=== PATIENT | male | born 1965 | race Caucasian/White ===

== ENCOUNTER 2020-02-15 18:53 | Emergency (ER) | payer OTHER, SELFPAY ==
[2020-02-15] VITALS (7 sets, daily range): BP systolic 118–131; BP diastolic 74–94; PULSE 68–112; RESP 17–18; TEMP 37.1; O2SAT 98–100
--- NOTE | ~2020-02-15 | XR_ITS ---
EXAMINATION: XR chest 1V portable DATE: 02/15/2020 19:49 INDICATION: Syncope and weakness TECHNIQUE: frontal view of the chest was obtained. COMPARISON: Chest radiograph dated 07/24/13 FINDINGS: The lungs remain clear with no focal airspace opacities, pulmonary edema, pleural effusion or pneumot horax. The cardiomediastinal silhouette is normal. Mild thoracic dextrocurvature with mild to moderat e spondylosis. Degenerative cystic changes versus chronic erosions with sclerotic margins at the ante roinferior left glenoid. IMPRESSION: 1. No acute cardiopulmonary disease. 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
--- NOTE | 2020-02-15 19:00 | ECG_ITS ---
Measurements Intervals [place] Rate: 81 P: 56 OR: 128 QRS: -3 QRSD: 93 T: 30 QT: 374 QTc: 435 Interpretive Statements SINUS RHYTHM BASELINE ARTIFACT- I, III, AVL, V1-V3 NORMAL ECG Electronically Signed On 02-15-2020 20:21:30 FRICKERTRON CHECKER by Rc Hanks D.O.
--- NOTE | 2020-02-15 19:04 | PC.NURSE ---
BS 399
[2020-02-15 19:07] LABS: Glucose Point of Care 399 (65-105)
[2020-02-15] MEDS: SODIUM CHLORIDE 0.9% IV 1,000 ML 999 ML IV CONT ×2 (19:33→21:39)
[2020-02-15 19:39] LABS: Basophils Percent Auto 0.2 % (0.2-1.2); Eosinophils Percent Auto 0.2 % (0-4.4); Hematocrit 45.6 % (42.0-52.0); Hemoglobin 15.8 g/dL (14.0-18.0); Immature Granulocyte Absolute 0.01 K/mm3 (0.00-0.031); Immature Granulocyte Percent A 0.2 % (0-0.5); Immature Platelet Fraction Pct 6.8 % (0.9-11.2); Lymphocytes Absolute Auto 1.33 K/mm3 (0.9-3.2); Lymphocytes Percent Auto 27.1 % (18.3-44.2); Mean Corpuscular HGB Conc 34.6 g/dl (32-36); Mean Corpuscular Hemoglobin 30.6 pg (26-34); Mean Corpuscular Volume 88.4 fl (80-100); Mean Platelet Volume 11.5 fl (7.4-10.4); Monocytes Absolute Auto 0.6 K/mm3 (0.1-0.6); Monocytes Percent Auto 12.8 % (2.6-8.5); Neutrophils Absolute Auto 2.9 K/mm3 (1.3-6.7); Neutrophils Percent Auto 59.5 % (45.5-73.1); Platelet Count Result 115 k/mm3 (150-375); Red Blood Count 5.16 M/mm3 (4.6-6.20); White Blood Count 4.9 K/mm3 (4.5-10.0)
[2020-02-15 19:50] LABS: Add Urine Microscopic? YES; Appearance Urine Clear (Clear); Bilirubin Urine Negative (Negative); Blood Urine Negative (Negative); Color Urine Straw (Yellow); Glucose Urine UA 3+ mg/dL (Negative); Ketones Urine Negative (Negative); Leukocyte Esterase Ur Negative LEU/UL (Negative); Nitrate Urine Negative (Negative); Protein Urine Negative (Negative); RBC Urine 0-2 /hpf (0-2); Urobilinogen Urine Negative mg/dL (<2.0); WBC Urine 0-3 /hpf
[2020-02-15 19:53] LABS: Specific Grav Ur 1.033 (1.001-1.035)
[2020-02-15 19:53] LABS: Beta-Hydroxybutyrate/Acetoacetate 0.12 mmol/L (0.02-0.27)
[2020-02-15 20:12] LABS: Alanine Aminotransferase 35 U/L (4-50); Albumin Level 3.5 g/dL (3.5-5.1); Alkaline Phosphatase 97 U/L (38-126); Anion Gap 6 mmol/L (8-16); Aspartate Amino Transferase 42 U/L (17-59); Bilirubin,Total 0.3 mg/dL (0.2-1.3); Blood Urea Nitrogen 16 mg/dL (9-20); Carbon Dioxide 31 mmol/L (22-30); Chloride 97 mmol/L (98-107); Estimated CRCL calculation 88 ml/min; Estimated Glomerular Filt Rate > 60; Glucose 385 mg/dL (75-110); Sodium 134 mmol/L (137-145)
[2020-02-15 20:58] LABS: Glucose Point of Care 356 (65-105)
--- NOTE | 2020-02-15 20:58 | ED.GENADULT ---
HPI - General Adult General Chief complaint: Syncope Stated complaint: headache/ cramped up /syncopal episodes Time Seen by Provider: 02/15/20 19:11 History of Present Illness HPI narrative: Patient is a 54-year-old gentleman who presents emerged part with chief complaint of generalized weakness. Patient states over the last several days he has felt weaker and also reports that he has history of diabetes and has not been checking his blood sugars. Patient states that he has been exposed to someone who was sick recently but he has not been running a fever. The patient denies cough states today he felt lightheaded and briefly passed out. Patient denies chest pain states that he has generalized body aches. Related Data Allergies Allergy/AdvReac Type Severity Reaction Status Date / Time trazodone Allergy Intermediate Unknown Verified 02/15/20 19:32 glimepiride Allergy Unknown Unknown Verified 02/15/20 19:32 lisinopril Allergy Unknown unknown Verified 02/15/20 19:32 Penicillins Allergy Unknown THROAT Verified 02/15/20 19:32 SWELLING Review of Systems Review of Systems: Narrative: CONSTITUTIONAL: Denies fever, chills, or sweats. EYES: Denies visual changes, redness, or discharge. ENT: Denies rhinorrhea, congestion, sore throat, or otalgia. CARDIOVASCULAR: Denies chest pain, palpitations, or edema. RESPIRATORY: Denies cough or dyspnea. GASTROINTESTINAL: Denies abdominal pain, nausea, vomiting, or diarrhea. GENITOURINARY: Denies dysuria or hematuria. SKIN: Denies rash or itching. MUSCULOSKELETAL: Denies back pain, joint pain, or myalgia. NEUROLOGIC: Denies headache, numbness, or weakness. PSYCHIATRIC: Denies anxiety or depression. All systems reviewed & are unremarkable except as noted in HPI and below PMFSH Family History Family History Mother Hypertension Family history of chronic obstructive pulmonary disease Family history of hypothyroidism Sibling Patient's sister is in good health Father Patient's father is Acute myocardial infarction Other Family history of cardiovascular disease Family history of malignant neoplasm Social History Social History Smoking status: Never smoker Alcohol intake: current Gender identity (if verbalized by the patient): Male Comments Patient has history of diabetes Exam Narrative: Exam Narrative: GENERAL: Well-appearing, well-nourished, and in no acute distress. HEAD: Normocephalic, atraumatic. EYES: PERRLA and EOMI. ENT: Nares clear, no rhinorrhea or epistaxis. Mucous membranes moist. NECK: Supple. CHEST: Clear to auscultation. No respiratory distress. HEART: Regular rate and rhythm. No murmur heard. Normal peripheral pulses. ABDOMEN: Soft, nontender, nondistended, normal active bowel sounds. EXTREMITIES: Normal range of motion. No edema. SKIN: Warm, dry, no rash. NEURO: No focal deficits. Alert and oriented x3. PSYCH: Normal mood and affect. Course Course Emergency Course: Patient was hydrated in the emergency department his blood sugar came down to 272. Patient will be started back on Metformin he is feeling much better at this time. Vital Signs Vital signs: Vital Signs Temperature 37.1 C 02/15/20 19:01 Pulse Rate 92 02/15/20 19:01 Respiratory Rate 17 02/15/20 19:01 Blood Pressure 131/87 02/15/20 19:01 Pulse Oximetry 100 02/15/20 19:01 Temperature 37.1 C 02/15/20 19:01 Pulse Rate 84 02/15/20 22:59 Respiratory Rate 17 02/15/20 22:59 Blood Pressure 118/82 02/15/20 22:59 Pulse Oximetry 98 02/15/20 22:59 Medical Decision Making Vital Signs Vital Signs: Vital Signs Temperature 37.1 C 02/15/20 19:01 Pulse Rate 92 02/15/20 19:01 Respiratory Rate 17 02/15/20 19:01 Blood Pressure 131/87 02/15/20 19:01 Pulse Oximetry 100 02/15/20 19:01 Temperature 37.1 C 02/15/20 19:01
[2020-02-15 22:40] LABS: Glucose Point of Care 401 (65-105)
[2020-02-15 22:45] LABS: Glucose Point of Care 276 (65-105)
== END 2020-02-15 23:00 | disposition home or self-care (01) ==
PROVIDERS: Emergency Medicine; Emergency Provider Emergency Medicine
DX: E11.65 Type 2 diabetes mellitus with hyperglycemia (principal)
CPT/HCPCS: 36415; 71045; 80048; 80076; 81001; 82010; 82948; 85025; 85055; 93005; 96360; 96361; 99283; J7030

== ENCOUNTER → 2020-04-17 13:42 | Outpatient (CLI) | payer OTHER, SELFPAY ==
--- NOTE | ~2020-04-17 | XR_ITS ---
EXAMINATION: XR chest 2V DATE: 04/17/2020 13:57 INDICATION: Smoker. TECHNIQUE: Frontal and lateral views of the chest were obtained. COMPARISON: Chest single view 02/15/2020, CT abdomen and pelvis 03/14/2017 FINDINGS: The chest demonstrates clear lungs without pneumonia, pleural effusion, or pneumothorax. Th e heart size is normal. There is mild chronic anterior wedging of multiple vertebral bodies. IMPRESSION: 1. No acute cardiopulmonary disease. Reviewed, dictated and finalized at location B. 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
== END ==
PROVIDERS: PCP Emergency Medicine; Visit Provider Emergency Medicine
DX: F17.210 Nicotine dependence, cigarettes, uncomplicated (principal)
CPT/HCPCS: 71046

== ENCOUNTER 2020-09-14 11:34 | Emergency (ER) | payer OTHER, SELFPAY ==
[2020-09-14] VITALS (8 sets, daily range): BP systolic 105–146; BP diastolic 71–91; PULSE 90–117; RESP 14–20; TEMP 36.4–36.8; O2SAT 98–100
--- NOTE | ~2020-09-14 | CT_ITS ---
EXAMINATION: CT chest abdomen pelvis w con DATE: 09/14/2020 13:26 INDICATION: Left-sided chest and abdominal pain after fall TECHNIQUE: Transaxial computed tomographic images of the chest, abdomen, and pelvis were obtained aft er the administration of 100 cc of Omnipaque 350 intravenous contrast. The dose-length product (DLP) was 497.55 mGy-cm. Automated exposure control and iterative reconstruction technique were employed. COMPARISON: None FINDINGS: CHEST CT: The lungs are free of acute opacities. There is no pleural effusion or pneumothorax. No pathologicall y enlarged thoracic lymph nodes are identified. The heart size is normal. There is there is moderate osteoarthritis of the left glenohumeral joint. There is an acute fracture of the left 11th rib edgerman iorly. Moderate thoracic spondylosis is noted. ABDOMEN/PELVIS CT: The liver surface is nodular. Splenomegaly is noted. There is a 1.5 cm area of focal subcapsular low attenuation of the spleen adjacent to the 11th rib fracture. The pancreas, gallbladder, and adrenal g lands are normal. The kidneys are unremarkable. Chronic abdominal lymphadenopathy is again noted, lik una reactive. There is no free intraperitoneal gas or evidence of bowel obstruction. There is calcifi ed atherosclerosis of the aorta and many of the other arteries. There are acute transverse process fr actures on the left at L3 and L4. There is mild lumbar spondylosis. IMPRESSION: 1. Grade 1 splenic injury adjacent to a left 11th rib fracture. 2. Acute transverse process fractures on the left at L3 and L4. 3. Cirrhosis with portal hypertension. These findings were discussed with CAMERON Forrest in the Emergency Department at 1400 hour s on 09/14/2020. Reviewed, dictated and finalized at location A. IMPRESSION: 1. Grade 1 splenic injury adjacent to a left 11th rib fracture. 2. Acute transverse process fractures on the left at L3 and L4. 3. Cirrhosis with portal hypertension. These findings were discussed with CAMERON Forrest in the Emergency D epartment at 1400 hours on 09/14/2020.
--- NOTE | ~2020-09-14 | CT_ITS ---
EXAMINATION: CT brain wo con INDICATION: Head injury COMPARISON: None TECHNIQUE: Standard unenhanced head CT. The dose-length product (DLP) was 605.33 mGy-cm. The mA was a djusted according to patient size. Iterative reconstruction technique was employed. FINDINGS: There is no intracranial hemorrhage, acute infarction, or abnormal mass lesion. The ventric les are normal. There is no abnormal mass effect or midline shift. The jimenez-white matter differentiat ion is normal. The basal cisterns are patent. The orbits are normal. The paranasal sinuses, mastoids and calvarium are normal. IMPRESSION: 1. No acute intracranial abnormality. Reviewed, dictated and finalized at location A.
--- NOTE | ~2020-09-14 | XR_ITS ---
EXAMINATION: XR shoulder RT min 2V INDICATION: Right shoulder pain TECHNIQUE: Three views of the right shoulder are submitted. COMPARISON: None FINDINGS: Normal alignment. No fracture. Glenohumeral and acromioclavicular joint spaces are normal. Soft tissues are unremarkable. IMPRESSION: 1. Mild osteoarthritis without acute osseous abnormality. Reviewed, dictated and finalized at location A.
--- NOTE | ~2020-09-14 | CT_ITS ---
EXAMINATION: CT cervical spine wo con DATE: 09/14/2020 13:24 INDICATION: Head injury TECHNIQUE: Computed tomography (CT) of the cervical spine was performed without intravenous contrast. The dose-length product (DLP) was 401.77 mGy-cm. Automated exposure control and iterative reconstruc tion technique were employed. COMPARISON: None FINDINGS: There is no fracture. There are 2 mm of retrolisthesis of C5 on C6. Mild loss of interverte bral disc space height is present at C4-5 and C5-6. The odontoid is intact. The prevertebral soft tis sues are normal. There is mild multilevel facet and uncovertebral joint osteoarthritis. IMPRESSION: 1. Mild cervical spondylosis without acute findings. Reviewed, dictated and finalized at location A.
--- NOTE | 2020-09-14 12:31 | ED.GENADULT ---
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 He was carrying laundry into his basement when he slipped and hit his head against the banister. No LOC. Not on blood thinners. He has experienced nausea without vomiting. He has a left sided frontal headache, rated 7/10 in severity. He has bruising in the affected area. He reports pain and decreased ROM in right shoulder that he states is 9/10 in severity. Pain is worse with movement of the RUE. He further endorses 10/10 pain in left lower back and left lower ribs/abdomen. He has not taken any medications for his symptoms. He does have an underlying hx of HTN and DM. He is taking 40 units of lantus at night and SSI during the day. He states it is not uncommon for BS to be in 400-500 range. He last checked his BS about one week ago with reading at that time around 300. He reports fairly consistent ETOH intake and uses methamphetamine, with last use yesterday. Related Data Home Medications Medication Instructions Recorded Confirmed ergocalciferol (vitamin D2) 09/14/20 insulin glargine [Lantus Solostar SUBCUT 09/14/20 U-100 Insulin] losartan 09/14/20 sertraline mg 09/14/20 Allergies Allergy/AdvReac Type Severity Reaction Status Date / Time trazodone Allergy Intermediate Unknown Verified 09/14/20 11:43 glimepiride Allergy Unknown Unknown Verified 09/14/20 11:43 lisinopril Allergy Unknown unknown Verified 09/14/20 11:43 Penicillins Allergy Unknown THROAT Verified 09/14/20 11:43 SWELLING Review of Systems Review of Systems: Narrative: CONSTITUTIONAL: Denies fever, chills, or sweats. EYES: Denies visual changes, redness, or discharge. ENT: Denies rhinorrhea, congestion, sore throat, or otalgia. CARDIOVASCULAR: Reports left sided rib pain. Denies palpitations, or edema. RESPIRATORY: Denies cough or dyspnea. GASTROINTESTINAL: Reports LUQ pain. Denies nausea, vomiting, or diarrhea. GENITOURINARY: Denies dysuria or hematuria. SKIN: Denies rash or itching. MUSCULOSKELETAL: Reports neck pain, back pain and right shoulder pain. NEUROLOGIC: Reports headache. Denies numbness, dizziness, or weakness. PSYCHIATRIC: Denies anxiety or depression. [facility] Past Medical History Medical History (Updated 09/14/20 @ 14:36 by Madhu Sutherland, CAMERON, ) Diabetes Hypertension Surgical History Surgical History No pertinent past surgical history Family History Family History Mother Hypertension Family history of chronic obstructive pulmonary disease Family history of hypothyroidism Sibling Patient's sister is in good health Father Patient's father is Acute myocardial infarction Other Family history of cardiovascular disease Family history of malignant neoplasm Social History Social History (Updated 09/14/20 @ 12:39 by CAMERON Forrest, ) Smoking status: Current every day smoker Additional smoking assessment comments: 04/01 ppd Alcohol intake: current Substance use: current Substance use type: amphetamines Living arrangements: with family Gender identity (if verbalized by the patient): Male Spiritual care concerns: No Exam Narrative: Exam Narrative: GENERAL: Well-appearing, well-nourished, and in no acute distress. HEAD: Normocephalic, atraumatic. EYES: PERRLA and EOMI. ENT: Nares clear, no rhinorrhea or epistaxis. Mucous membranes moist. Oropharynx without tonsillar hypertrophy exudate or other lesions. Bilateral TMs pearly jimenez nonbulging NECK: Supple. No adenopathy or masses. No gray
[2020-09-14] MEDS: HYDROcodone/acetaminophen (*CRX) 5-325 MG TABLET 1 TAB PO (12:37)
[2020-09-14 13:26] LABS: Estimated CRCL calculation 79 ml/min; Estimated Glomerular Filt Rate > 60
[2020-09-14 13:32] LABS: Add Urine Microscopic? YES; Appearance Urine Clear (Clear); Bilirubin Urine Negative (Negative); Blood Urine 1+ (Negative); Color Urine Straw (Yellow); Glucose Urine UA 3+ mg/dL (Negative); Ketones Urine Negative (Negative); Leukocyte Esterase Ur Negative LEU/UL (Negative); Nitrate Urine Negative (Negative); Protein Urine Negative (Negative); RBC Urine 0-2 /hpf (0-2); Urobilinogen Urine Negative mg/dL (<2.0); WBC Urine 0-3 /hpf
[2020-09-14 13:36] LABS: Basophils Percent Auto 0.5 % (0.2-1.2); Eosinophils Percent Auto 0.2 % (0-4.4); Hemoglobin 14.4 g/dL (14.0-18.0); Immature Granulocyte Absolute 0.02 K/mm3 (0.00-0.031); Immature Granulocyte Percent A 0.2 % (0-0.5); Lymphocytes Percent Auto 10.3 % (18.3-44.2); Mean Corpuscular HGB Conc 33.5 g/dl (32-36); Mean Corpuscular Hemoglobin 29.5 pg (26-34); Mean Corpuscular Volume 88.1 fl (80-100); Mean Platelet Volume 11.5 fl (7.4-10.4); Monocytes Absolute Auto 0.9 K/mm3 (0.1-0.6); Monocytes Percent Auto 10.4 % (2.6-8.5); Neutrophils Absolute Auto 6.9 K/mm3 (1.3-6.7); Neutrophils Percent Auto 78.4 % (45.5-73.1); Platelet Count Result 147 k/mm3 (150-375); Red Blood Count 4.88 M/mm3 (4.6-6.20); Red Cell Distribution Width 12.4 % (11.5-14.5); White Blood Count 8.8 K/mm3 (4.5-10.0)
[2020-09-14 13:36] LABS: Specific Grav Ur 1.031 (1.001-1.035)
[2020-09-14] MEDS: SODIUM CHLORIDE 0.9% IV 1,000 ML 999 ML IV CONT ×2 (13:39→15:14)
[2020-09-14 13:50] LABS: Ethanol < 10 mg/dL (<10)
[2020-09-14 13:59] LABS: INR 1.1; Prothrombin Time 14.5 Seconds (11.1-14.7)
[2020-09-14 14:00] LABS: Partial Thromboplastin Time 28.5 SECONDS (22.3-36.8)
[2020-09-14 14:06] LABS: Alanine Aminotransferase 39 U/L (4-50); Albumin Level 4.3 g/dL (3.5-5.1); Alkaline Phosphatase 102 U/L (38-126); Anion Gap 8 mmol/L (8-16); Aspartate Amino Transferase 48 U/L (17-59); Bilirubin,Total 1.1 mg/dL (0.2-1.3); Blood Urea Nitrogen 10 mg/dL (9-20); Calcium 9.6 mg/dL (8.4-10.2); Carbon Dioxide 31 mmol/L (22-30); Chloride 97 mmol/L (98-107); Estimated CRCL calculation 88 ml/min; Estimated Glomerular Filt Rate > 60; Glucose 526 mg/dL (75-110); Lipase 83 U/L (23-300); Potassium 4.3 mmol/L (3.4-5.0); Sodium 136 mmol/L (137-145)
[2020-09-14 14:52] LABS: Barbiturate Screen Urine Negative (Negative); Benzodiazepines Screen Urine Negative (Negative)
[2020-09-14 14:54] LABS: Cannabinoid Screen Urine Positive (Negative); Cocaine Screen Urine Negative (Negative); Methadone Screen Urine Negative (Negative); Opiate Screen Urine Positive (Negative); Phencyclidine Screen Urine Negative (Negative)
--- NOTE | 2020-09-14 15:00 | PC.NURSE ---
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
--- NOTE | 2020-09-14 15:05 | PC.NURSE ---
Pt advised multiple times to use urinal at bedside to void due to injuries as noted on CT scan, adamantly refuses and states he will walk to bathroom to void. Encourage to lie on stretcher, but sits in chair next to stretcher with monitor on. Has ankle tracking bracelet on ankle, states he's had for 2 years.
[2020-09-14] MEDS: INSULIN HUMAN REGULAR (*BKC) 100 UNITS/ML 12 UNITS IV PUSH (15:14)
[2020-09-14] MEDS: MORPHINE SULFATE (*CRX) 2 MG/ML INJ IV PUSH (15:37)
== END 2020-09-14 16:15 | disposition short-term general hospital (02) ==
PROVIDERS: Emergency Provider Nurse Practitioner; PCP Emergency Medicine
DX: S22.32XA Fracture of one rib, left side, initial encounter for closed fracture (principal); S36.00XA Unspecified injury of spleen, initial encounter; S32.038A Other fracture of third lumbar vertebra, initial encounter for closed fracture; S32.049A Unspecified fracture of fourth lumbar vertebra, initial encounter for closed fracture; E11.9 Type 2 diabetes mellitus without complications; Z79.4 Long term (current) use of insulin; I10 Essential (primary) hypertension; W10.9XXA Fall (on) (from) unspecified stairs and steps, initial encounter
CPT/HCPCS: 70450; 71260; 72125; 73030; 74177; 80053; 80307; 81001; 83690; 85025; 85610; 85730; 96361; 96374; 96375; 99285; A9270; J1815; J2270; J7030; Q9967

== ENCOUNTER 2020-11-29 21:45 | Observation (INO) | payer OTHER, SELFPAY ==
--- NOTE | ~2020-11-29 | XR_ITS ---
EXAMINATION: XR shoulder RT min 2V DATE: 12/01/2020 08:06 INDICATION: Right shoulder pain post fall TECHNIQUE: AP internally and externally rotated, AP oblique externally rotated and transscapular Y vi ews of the right shoulder were obtained. COMPARISON: None FINDINGS: Normal alignment. No fracture.Mild glenohumeral and acromioclavicular osteoarthritis. Visual is port ions of the lungs are clear. Mild thoracic dextrocurvature with moderate spondylosis. Soft tissues ar e unremarkable. IMPRESSION: Mild right glenohumeral and acromioclavicular osteoarthritis. No acute osseous abnormality. Reviewed, dictated and finalized at location A.
[2020-11-29 21:45] VITALS: BP 117/91; PULSE 106; RESP 25; TEMP 37.7; O2SAT 100
[2020-11-29 21:51] LABS: Glucose Point of Care > 500 mg/dl (65-105)
[2020-11-29] MEDS: SODIUM CHLORIDE 0.9% IV 1,000 ML 999 ML IV CONT ×2 (22:06→23:25)
[2020-11-29 22:42] LABS: Basophils Percent Auto 0.3 % (0.2-1.2); Eosinophils Percent Auto 0.1 % (0-4.4); Hematocrit 45.1 % (42.0-52.0); Hemoglobin 15.4 g/dL (14.0-18.0); Immature Granulocyte Absolute 0.04 K/mm3 (0.00-0.031); Immature Granulocyte Percent A 0.3 % (0-0.5); Lymphocytes Absolute Auto 1.11 K/mm3 (0.9-3.2); Lymphocytes Percent Auto 9.3 % (18.3-44.2); Mean Corpuscular HGB Conc 34.1 g/dl (32-36); Mean Corpuscular Volume 87.9 fl (80-100); Mean Platelet Volume 11.1 fl (7.4-10.4); Monocytes Absolute Auto 1.6 K/mm3 (0.1-0.6); Monocytes Percent Auto 13.1 % (2.6-8.5); Neutrophils Absolute Auto 9.2 K/mm3 (1.3-6.7); Neutrophils Percent Auto 76.9 % (45.5-73.1); Platelet Count Result 131 k/mm3 (150-375); Red Blood Count 5.13 M/mm3 (4.6-6.20); Red Cell Distribution Width 12.2 % (11.5-14.5); White Blood Count 11.9 K/mm3 (4.5-10.0)
[2020-11-29 22:45] LABS: Alanine Aminotransferase 48 U/L (4-50); Alkaline Phosphatase 171 U/L (38-126); Anion Gap 7 mmol/L (8-16); Aspartate Amino Transferase 32 U/L (17-59); Bilirubin,Total 0.9 mg/dL (0.2-1.3); Blood Urea Nitrogen 22 mg/dL (9-20); Calcium 10.3 mg/dL (8.4-10.2); Carbon Dioxide 25 mmol/L (22-30); Chloride 96 mmol/L (98-107); Estimated CRCL calculation 95 ml/min; Estimated Glomerular Filt Rate > 60; Glucose 486 mg/dL (65-110); Magnesium 1.8 mg/dL (1.6-2.3); Phosphorus 3.9 mg/dL (2.5-4.5); Potassium 4.3 mmol/L (3.4-5.0); Sodium 128 mmol/L (137-145)
[2020-11-29 22:50] LABS: Beta-Hydroxybutyrate/Acetoacetate 0.22 mmol/L (0.02-0.27)
[2020-11-29 22:55] LABS: Add Urine Microscopic? YES; Appearance Urine Clear (Clear); Bacteria Urine Trace /hpf; Bilirubin Urine Negative (Negative); Blood Urine 2+ (Negative); Color Urine Straw (Yellow); Glucose Urine UA 3+ mg/dL (Negative); Ketones Urine Negative (Negative); Leukocyte Esterase Ur 2+ LEU/UL (Negative); Mucus Urine Rare /lpf; Nitrate Urine Negative (Negative); Protein Urine 1+ mg/dL (Negative); Specific Grav Ur 1.018 (1.001-1.035); Urobilinogen Urine Negative mg/dL (<2.0); WBC Urine >75 /hpf
--- NOTE | 2020-11-29 23:14 | ED.RECABL ---
HPI - Recheck/Abnormal Lab/Rx General Chief Complaint: Recheck/Abnormal Lab/Rx Stated Complaint: hyperglycemia Time Seen by Provider: 11/29/20 21:54 History of Present Illness HPI narrative: Patient presents with elevated blood sugar. Patient reports he has known diabetes but that is not take any of his medications or check his blood sugar on a regular basis. He came in today because he has been not feeling well for the past week or 2 reports achy all over reports diffuse abdominal pain denies nausea vomiting he denies fevers. Reports frequent urination. Related Data Home Medications Medication Instructions Recorded Confirmed No Home Medications 11/30/20 11/30/20 Allergies Allergy/AdvReac Type Severity Reaction Status Date / Time trazodone Allergy Intermediate Unknown Verified 11/29/20 21:55 glimepiride Allergy Unknown Unknown Verified 11/29/20 21:55 lisinopril Allergy Unknown unknown Verified 11/29/20 21:55 Penicillins Allergy Unknown THROAT Verified 11/29/20 21:55 SWELLING Review of Systems Review of Systems: CONSTITUTIONAL: Denies fever, chills, or sweats. EYES: Denies visual changes, redness, or discharge. ENT: Denies rhinorrhea, congestion, sore throat, or otalgia. CARDIOVASCULAR: Denies chest pain, palpitations, or edema. RESPIRATORY: Denies cough or dyspnea. GASTROINTESTINAL: Denies nausea, vomiting, or diarrhea. GENITOURINARY: Patient reports frequent urination SKIN: Denies rash or itching. MUSCULOSKELETAL: Denies back pain, joint pain, or myalgia. NEUROLOGIC: Denies headache, numbness, dizziness, or weakness. PSYCHIATRIC: Denies anxiety or depression. All systems reviewed & are unremarkable except as noted in HPI and below PMFSH Past Medical History Medical History Diabetes Hypertension Surgical History Surgical History No pertinent past surgical history Family History Family History Mother Hypertension Family history of chronic obstructive pulmonary disease Family history of hypothyroidism Sibling Patient's sister is in good health Father Patient's father is Acute myocardial infarction Other Family history of cardiovascular disease Family history of malignant neoplasm Social History Social History Smoking packs per day: 0.5 Smoking cigarettes per day: 10.0 Years smoked: 35 Smoking pack-years: 17.50 Smoking status: Current every day smoker Tobacco type: cigarettes and e-cigarettes/vaping Second hand tobacco smoke exposure: Yes Additional smoking assessment comments: 04/01 ppd Alcohol intake: current Substance use: current Substance use type: marijuana and methamphetamine Last use: pt states its been a couple of months since I used methamphetamines Gender identity (if verbalized by the patient): Male Spiritual care concerns: No Exam Narrative: GENERAL: Well-appearing, well-nourished, and in no acute distress. HEAD: Normocephalic, atraumatic. EYES: PERRLA and EOMI. ENT: Nares clear, no rhinorrhea or epistaxis. Mucous membranes moist. NECK: Supple. No masses. No JVD CHEST: Clear to auscultation. No respiratory distress. No wheezes rales or rhonchi HEART: Regular rate and rhythm. No murmur heard. Normal peripheral pulses. ABDOMEN: Mild diffuse abdominal pain, soft nondistended, normal active bowel sounds. EXTREMITIES: Diffuse tenderness on the right shoulder with multiple analgesic patches in place SKIN: Warm, dry, no rash. NEURO: No focal deficits. Alert and oriented x3. PSYCH: Normal mood and affect. Course Vital Signs Vital signs: Vital Signs Temperature 37.7 C H 11/29/20 21:45 Pulse Rate 106 H 11/29/20 21:45 Respiratory Rate 25 H 11/29/20 21:45 Blood Pressure 117/91 H 11/29/20 21:45 Pulse Oximetry 10
[2020-11-29] MEDS: MORPHINE SULFATE (*CRX) 4 MG/ML INJ IV PUSH (23:24)
[2020-11-29 23:32] VITALS: BP 132/88; PULSE 103; RESP 18; O2SAT 97
[2020-11-29 23:41] LABS: Glucose Point of Care 387 mg/dl (65-105)
--- NOTE | 2020-11-29 23:51 | PC.NURSE ---
called lab @ [phone] to add on Lip talked to Marlin PENALOZA
[2020-11-30] VITALS (8 sets, daily range): BP systolic 96–130; BP diastolic 63–87; PULSE 63–106; RESP 16–21; TEMP 36.3–37.2; O2SAT 98–100; BMI 22.6
[2020-11-30 00:26] LABS: Lactic Acid Reflex 1.7 mmol/L (0.7-2.1)
[2020-11-30 00:49] LABS: Lipase 83 U/L (23-300)
--- NOTE | 2020-11-30 01:05 | PC.NURSE ---
Pt sleeping on stretcher at this time.
[2020-11-30 01:08] LABS: Glucose Point of Care 381 mg/dl (65-105)
--- NOTE | 2020-11-30 01:48 | PC.NURSE ---
This patient, Richard Durham Jr., was admitted to 3 [facility] Surg Room 327-01. Patient/family oriented to hospital policies and general routines including ID bracelet, bed and alarms, visiting hours, pain management, procedures, bathroom and other care routines, personal items, smoking policy, room service/diet, and visiting hours. Information on how to activate the Rapid Response Team has been discussed. Patient/Family are encouraged to report perceived risks to care and to ask questions if they do not understand what they are told or what they should do.
[2020-11-30 02:10] LABS: Glucose Point of Care 497 mg/dl (65-105)
[2020-11-30] MEDS: SODIUM CHLORIDE 0.9% IV 1,000 ML 125 ML IV CONT ×3 (03:03→20:35)
[2020-11-30] MEDS: INSULIN ASPART (*BKC) 100 UNITS/ML 18 UNITS SUB-Q (03:03)
[2020-11-30 04:07] LABS: Glucose Point of Care 303 mg/dl (65-105)
--- NOTE | 2020-11-30 05:34 | PM.IMHP ---
H&P: HPI History of Present Illness Date/Time: 11/30/20 05:34 Chief Complaint: Uncontrolled sugars Narrative: This is a 55-year-old male with past medical history significant for type 2 diabetes mellitus, hypertension. Patient presented to the emergency room due to his sugars being not well controlled his been having polydipsia polyphagia polyuria he denies any pain or burning with urination no fevers no rigors no chills has noted weight loss as well patient is a poor historian and can not really give much history in the emergency room he was found to have a blood sugar in the 500 and a urinalysis was significant for numerous wbc's. Patient has been admitted to regular medical floor for further management and treatment. A BMP was significant for sodium 128 , chest x-ray was cleared. Review of Systems Review of Systems: Polydipsia polyphagia polyuria weight loss Constitutional: Constitutional: Denies chills, Denies fatigue, Denies fever(s), Reports increased appetite, Denies malaise, Denies weakness and Reports weight loss Eyes: Eyes: Denies change in vision ENT: Denies dysphagia, Denies nasal congestion, Denies nasal discharge, Denies nasal obstruction and Denies odynophagia Cardiovascular: Cardiovascular: Denies irregular heart rhythm, Denies lightheadedness, Denies radiating jaw, neck or arm pain, Denies palpitations, Denies dyspnea on exertion and Denies orthopnea Respiratory: Respiratory: Denies cough Gastrointestinal: Gastrointestinal: Denies dyspepsia, Denies heartburn, Denies diarrhea, Denies nausea and Denies vomiting Genitourinary: Genitourinary: Reports no additional male genitourinary complaints, Denies dysuria and Denies flank pain Musculoskeletal: Musculoskeletal: Denies muscle cramps and Denies muscle weakness Integumentary/Breasts: Skin/Breast: Reports system reviewed and no additional complaints, except as docu Neurologic: Reports system reviewed and no additional complaints, except as documented Psychiatric: Psychiatric: Reports no additional psychiatric complaints Endocrine: Endocrine: Reports polyphagia, Reports polydipsia and Reports polyuria Hematologic/Lymphatic: Hematologic/Lymphatic: Reports no additional hematologic/lymphatic complaints Allergic/Immunologic: Allergic/Immunologic: Reports no additional allergic/immunologic complaints PMFSH Past Medical History Medical History Diabetes Hypertension Surgical History Surgical History No pertinent past surgical history Family History Family History Mother Hypertension Family history of chronic obstructive pulmonary disease Family history of hypothyroidism Sibling Patient's sister is in good health Father Patient's father is Acute myocardial infarction Other Family history of cardiovascular disease Family history of malignant neoplasm Social History Social History Smoking packs per day: 0.5 Smoking cigarettes per day: 10.0 Years smoked: 35 Smoking pack-years: 17.50 Smoking status: Current every day smoker Tobacco type: cigarettes and e-cigarettes/vaping Second hand tobacco smoke exposure: Yes Additional smoking assessment comments: 04/01 ppd Alcohol intake: current Substance use: current Substance use type: marijuana and methamphetamine Last use: pt states its been a couple of months since I used methamphetamines Gender identity (if verbalized by the patient): Male Spiritual care concerns: No Meds Home Medications and Allergies Home Medications Medication Instructions Recorded Confirmed Type No Home Medications 11/30/20 11/30/20 History Allergies Allergy/AdvReac Type Severity Reaction Status Date / Time trazodone Allergy Intermediate Unknown Verified 11/29/20 21:
[2020-11-30 08:10] LABS: Glucose Point of Care 184 mg/dl (65-105)
--- NOTE | 2020-11-30 11:18 | PM.IMPN ---
Progress Note: A&P Assessment and Plan (1) Acute UTI: Code(s): N39.0 - Urinary tract infection, site not specified Status: Acute Assessment and Plan: Patient was started on levofloxacin 11/29 Urine culture pending Symptoms improving (2) Uncontrolled diabetes mellitus: Code(s): E11.65 - Type 2 diabetes mellitus with hyperglycemia Status: Acute Assessment and Plan: 1800 carb consistent diet Accu-Cheks AC and HS Insulin sliding scale Supportive care Check hemoglobin A1c He had stopped his diabetes medications on his own as he reports that made him uncomfortable, he was unable to move which medicines, but he was intolerant to metformin. He was on Lantus in the past. Will initiate and titrate. (3) Hypertension: Code(s): I10 - Essential (primary) hypertension Status: Acute Assessment and Plan: He is not on any medicines Blood pressure has not been elevated in the hospital so far, continue to monitor (4) Hyponatremia: Code(s): E87.1 - Hypo-osmolality and hyponatremia Status: Acute Assessment and Plan: Likely dilutional in the setting of significant hyperglycemia. Monitor. (5) Right shoulder pain: Code(s): M25.511 - Pain in right shoulder Status: Acute Assessment and Plan: Reports shoulder pain since August of this year when he had a fall Significant limitation to range of motion Obtain MRI to assess ligament integrity and consult Orthopedics based on results Pain control Physical and occupational therapy (6) Cirrhosis: Code(s): K74.60 - Unspecified cirrhosis of liver Status: Acute Assessment and Plan: This was noted on prior imaging of his abdomen. No symptoms currently related to that. He does have mild thrombocytopenia that is chronic and may be related to his liver disease. His liver disease seems to be compensated present. (7) Polysubstance abuse: Code(s): F19.10 - Other psychoactive substance abuse, uncomplicated Status: Acute Assessment and Plan: He continues to use methamphetamines and marijuana actively last use was a few days ago. He does it twice a day. Additional Plan Code status: Full code Subjective Date/time seen: 11/30/20 11:18 No major events overnight. Reports continued right shoulder pain. He has a lidocaine patch on the shoulder but continues to have significant pain. Received some morphine overnight which helped some. Hemodynamically stable. Afebrile. Review of Systems Review of Systems: All systems reviewed & are unremarkable except as noted in HPI and below Exam Narrative: Gen: Alert, NAD Abd: Soft, NT, ND Heart: RRR Lungs: CTAB Ext: No lower extremity edema Objective Data Vital Signs Vital Signs: Vital Signs - 24 hr 11/29/20 21:45 11/29/20 23:32 11/30/20 00:32 Temperature 99.9 F H Pulse Rate 106 H 103 H 91 Respiratory Rate 25 H 18 21 H Blood Pressure 117/91 H 132/88 130/84 Pulse Oximetry 100 97 100 11/30/20 01:19 11/30/20 01:35 11/30/20 06:00 Temperature 97.7 F 97.3 F L Pulse Rate 106 H 86 73 Respiratory Rate 20 20 20 Blood Pressure 118/87 116/76 96/63 L Pulse Oximetry 98 100 100 Intake/Output Intake/Output: Intake & Output 11/27/20 11/28/20 11/29/20 11/30/20 23:59 23:59 23:59 23:59 Intake Total 1000 2260 Balance 1000 2260 Meds/Results Medications: Active Medications Generic Name Dose Route Start Last Admin Trade Name Freq PRN Reason Stop Dose Admin Dextrose 12.5 gm 11/30/20 02:15 Dextrose 50% 25 Gm/50 Ml Syringe IV PUSH PRN PRN Hypoglycemia Protocol Glucagon 1 mg 11/30/20 02:15 Glucagon For Inj 1 Mg Vial IM PRN PRN Hypoglycemia Protocol Glucose 15 gm 11/30/20 02:15 Glucose Oral Gel 15 Gm Of Glucse In 37.5 Gm Tube PO PRN PRN Hypoglycemia Protocol Levofloxacin/Dextrose 750 mg in 150 mls @ 100 mls/hr 11/30/20 22:00 Levaquin 750 Mg/D5
[2020-11-30] MEDS: INSULIN ASPART (*BKC) 100 UNITS/ML SUB-Q ×2 (11:22→17:29)
[2020-11-30 11:38] LABS: Glucose Point of Care 348 mg/dl (65-105)
[2020-11-30 11:55] LABS: Anion Gap 5 mmol/L (8-16); Blood Urea Nitrogen 24 mg/dL (9-20); Calcium 8.6 mg/dL (8.4-10.2); Carbon Dioxide 25 mmol/L (22-30); Chloride 100 mmol/L (98-107); Estimated CRCL calculation 112 ml/min; Estimated Glomerular Filt Rate > 60; Glucose 343 mg/dL (65-110); Potassium 4.5 mmol/L (3.4-5.0); Sodium 130 mmol/L (137-145)
[2020-11-30] MEDS: LIDOCAINE 5% PATCH 2 PATCH TRANSDERM (15:49)
[2020-11-30 16:34] LABS: Glucose Point of Care 317 mg/dl (65-105)
[2020-11-30] MEDS: traMADol HCL (*CRX) 50 MG TABLET PO (17:29)
--- NOTE | 2020-11-30 20:32 | PC.NURSE ---
Notified of pt. elevated blood sugar. New orders was given.
[2020-11-30] MEDS: INSULIN ASPART (*BKC) 100 UNITS/ML 16 UNITS SUB-Q (20:35)
[2020-11-30] MEDS: INSULIN GLARGINE (*BKC) 100 UNITS/ML 10 UNITS SUB-Q (20:35)
[2020-11-30 21:52] LABS: Glucose Point of Care 413 mg/dl (65-105)
[2020-11-30 23:00] LABS: Glucose Point of Care 264 mg/dl (65-105)
[2020-12-01] MEDS: traMADol HCL (*CRX) 50 MG TABLET PO ×2 (00:10→07:54)
[2020-12-01 06:00] VITALS: BP 118/74; PULSE 76; RESP 16; TEMP 37.2; O2SAT 100
--- NOTE | 2020-12-01 06:24 | PC.NURSE ---
Pt. was not happy with the current pain medication. He requested that he get more morphine like he did in the ED, says Tramadol doesn't take the pain away, I cant feel it all it does is make me sleep like the IV Tylenol. Told pt. that would have to talk to the MD. Pt. did get angry and say Well maybe I'll just throw myself on the floor! Then you would have to give me some morphine or better yet I'll just leave and go to [place] and get some heroin. Educated pt. on the importance of safety and a bed alarm was put on. Pt. did take the tramadol and has not has had anymore complaints of pain at this time. Bed alarm is still on and pt. is being monitored for elopement.
[2020-12-01 07:26] LABS: Basophils Percent Auto 0.4 % (0.2-1.2); Eosinophils Absolute Auto 0.1 K/mm3 (0-0.3); Eosinophils Percent Auto 1.3 % (0-4.4); Hematocrit 38.7 % (42.0-52.0); Immature Granulocyte Absolute 0.03 K/mm3 (0.00-0.031); Immature Granulocyte Percent A 0.5 % (0-0.5); Lymphocytes Absolute Auto 0.97 K/mm3 (0.9-3.2); Lymphocytes Percent Auto 17.7 % (18.3-44.2); Mean Corpuscular HGB Conc 33.6 g/dl (32-36); Mean Corpuscular Hemoglobin 29.7 pg (26-34); Mean Corpuscular Volume 88.6 fl (80-100); Mean Platelet Volume 10.7 fl (7.4-10.4); Monocytes Absolute Auto 0.6 K/mm3 (0.1-0.6); Monocytes Percent Auto 11.2 % (2.6-8.5); Neutrophils Absolute Auto 3.8 K/mm3 (1.3-6.7); Neutrophils Percent Auto 68.9 % (45.5-73.1); Platelet Count Result 105 k/mm3 (150-375); Red Blood Count 4.37 M/mm3 (4.6-6.20); Red Cell Distribution Width 12.2 % (11.5-14.5); White Blood Count 5.5 K/mm3 (4.5-10.0)
[2020-12-01 07:40] LABS: Anion Gap 3 mmol/L (8-16); Blood Urea Nitrogen 17 mg/dL (9-20); Calcium 7.7 mg/dL (8.4-10.2); Carbon Dioxide 23 mmol/L (22-30); Chloride 104 mmol/L (98-107); Estimated CRCL calculation 132 ml/min; Estimated Glomerular Filt Rate > 60; Glucose 245 mg/dL (65-110); Potassium 3.6 mmol/L (3.4-5.0); Sodium 130 mmol/L (137-145)
[2020-12-01] MEDS: INSULIN ASPART (*BKC) 100 UNITS/ML SUB-Q ×2 (07:54→12:53)
[2020-12-01 08:00] VITALS: PULSE 76; RESP 16; O2SAT 100
[2020-12-01 09:01] LABS: Hemoglobin A1C > 14.0 % (<5.7)
--- NOTE | 2020-12-01 09:31 | PM.IMPN ---
Progress Note: A&P Assessment and Plan (1) Acute UTI: Code(s): N39.0 - Urinary tract infection, site not specified Status: Acute Assessment and Plan: Patient was started on levofloxacin 11/29 Urine culture pending Symptoms improving (2) Uncontrolled diabetes mellitus: Code(s): E11.65 - Type 2 diabetes mellitus with hyperglycemia Status: Acute Assessment and Plan: 1800 carb consistent diet Accu-Cheks AC and HS Insulin sliding scale Supportive care Check hemoglobin A1c He had stopped his diabetes medications on his own as he reports that made him uncomfortable, he was unable to move which medicines, but he was intolerant to metformin. Initiated Lantus 11/29, will increase the dose to 20 units tonight. rn diabetes educator consultation (3) Hypertension: Code(s): I10 - Essential (primary) hypertension Status: Acute Assessment and Plan: He is not on any medicines Blood pressure has not been elevated in the hospital so far, continue to monitor (4) Hyponatremia: Code(s): E87.1 - Hypo-osmolality and hyponatremia Status: Acute Assessment and Plan: Likely dilutional in the setting of significant hyperglycemia. Improved. Monitor. (5) Right shoulder pain: Code(s): M25.511 - Pain in right shoulder Status: Acute Assessment and Plan: Reports shoulder pain since August of this year when he had a fall Significant limitation to range of motion Obtain MRI to assess ligament integrity Orthopedic consultation Pain control Physical and occupational therapy (6) Cirrhosis: Code(s): K74.60 - Unspecified cirrhosis of liver Status: Acute Assessment and Plan: This was noted on prior imaging of his abdomen. No symptoms currently related to that. He does have mild thrombocytopenia that is chronic and may be related to his liver disease. His liver disease seems to be compensated present. (7) Polysubstance abuse: Code(s): F19.10 - Other psychoactive substance abuse, uncomplicated Status: Acute Assessment and Plan: He continues to use methamphetamines and marijuana actively last use was a few days ago. He does it twice a day. Additional Plan Code status: Full code DVT prophylaxis: SCDs Subjective Date/time seen: 12/01/20 09:31 No major issues overnight. Hemodynamically stable. Continues to have right shoulder pain. Glycemic control is still poor. Review of Systems Review of Systems: All systems reviewed & are unremarkable except as noted in HPI and below Constitutional: Constitutional: Denies chills, Denies fatigue, Denies fever(s), Reports increased appetite, Denies malaise, Denies weakness and Reports weight loss Exam Narrative: Gen: Alert, NAD Abd: Soft, NT, ND Heart: RRR Lungs: CTAB Ext: No lower extremity edema Objective Data Vital Signs Vital Signs: Vital Signs - 24 hr 11/30/20 13:41 11/30/20 16:00 11/30/20 22:00 Temperature 98.3 F 98.3 F 99 F Pulse Rate 63 63 81 Respiratory Rate 16 16 18 Blood Pressure 127/65 127/65 119/72 Pulse Oximetry 100 100 98 12/01/20 06:00 Temperature 98.9 F Pulse Rate 76 Respiratory Rate 16 Blood Pressure 118/74 Pulse Oximetry 100 Intake/Output Intake/Output: Intake & Output 11/28/20 11/29/20 11/30/20 12/01/20 23:59 23:59 23:59 23:59 Intake Total 1000 4980 540 Output Total 350 Balance 1000 4630 540 Meds/Results Medications: Active Medications Generic Name Dose Route Start Last Admin Trade Name Freq PRN Reason Stop Dose Admin Dextrose 12.5 gm 11/30/20 02:15 Dextrose 50% 25 Gm/50 Ml Syringe IV PUSH PRN PRN Hypoglycemia Protocol Glucagon 1 mg 11/30/20 02:15 Glucagon For Inj 1 Mg Vial IM PRN PRN Hypoglycemia Protocol Glucose 15 gm 11/30/20 02:15 Glucose Oral Gel 15 Gm Of Glucse In 37.5 Gm Tube PO PRN PRN Hypoglycemia Protocol Levofloxacin/Dextrose 750 mg in 150
[2020-12-01 11:35] LABS: Glucose Point of Care 363 mg/dl (65-105)
[2020-12-01 14:00] VITALS: BP 143/89; PULSE 93; RESP 16; TEMP 35.8; O2SAT 100
--- NOTE | 2020-12-01 14:27 | PM.DS ---
DS: Admitting Diagnosis Admitting Diagnosis Hyperglycemia DS: Discharge Diagnosis Discharge Diagnosis (1) Acute UTI: Code(s): N39.0 - Urinary tract infection, site not specified Status: Acute Assessment and Plan: Patient was started on levofloxacin 11/30, culture showing streptococcus viridans, plan for 7 day course Symptoms improving (2) Uncontrolled diabetes mellitus: Code(s): E11.65 - Type 2 diabetes mellitus with hyperglycemia Status: Acute Assessment and Plan: 1800 carb consistent diet Accu-Cheks AC and HS Insulin sliding scale Supportive care hemoglobin A1c > 14% Initiated Lantus and metformin. Continue titration in outpatient setting. all terrain vehicle technician consultation (3) Hypertension: Code(s): I10 - Essential (primary) hypertension Status: Acute Assessment and Plan: He is not on any medicines Blood pressure has not been elevated in the hospital so far, continue to monitor (4) Hyponatremia: Code(s): E87.1 - Hypo-osmolality and hyponatremia Status: Acute Assessment and Plan: Likely dilutional in the setting of significant hyperglycemia. Improved. Monitor. (5) Right shoulder pain: Code(s): M25.511 - Pain in right shoulder Status: Acute Assessment and Plan: Reports shoulder pain since August of this year when he had a fall Significant limitation to range of motion Xray with no obvious deformity Orthopedic outpatient referral Pain control with lidocaine patch and acetaminophen as needed (6) Cirrhosis: Code(s): K74.60 - Unspecified cirrhosis of liver Status: Acute Assessment and Plan: This was noted on prior imaging of his abdomen. No symptoms currently related to that. He does have mild thrombocytopenia that is chronic and may be related to his liver disease. His liver disease seems to be compensated present. (7) Polysubstance abuse: Code(s): F19.10 - Other psychoactive substance abuse, uncomplicated Status: Acute Assessment and Plan: He continues to use methamphetamines and marijuana and advised to discontinue use. DS: Summary Hospital Course Hospital Course: This is a 55-year-old gentleman with past medical history of poorly controlled type 2 diabetes mellitus and hypertension, who presented to the emergency department on 11/29 for evaluation of polyuria, dysuria, and concern for elevated glucose. His initial blood glucose was 526. His labs showed a sodium 128, potassium 4.3, chloride 96, bicarb 25, BUN 22, creatinine 0.7, hemoglobin A1c more than 14%, hemoglobin 15.4, WBC 11.9, platelets 131. Urinalysis showed pyuria and hematuria. He was initiated on levofloxacin. He was initiated on sliding scale insulin along with Lantus, and metformin. His glycemic control improved. He complained of right shoulder pain. He had a fall in August of 2020 and since that time had quite painful with decreased range of motion. X-ray showed mild right glenohumeral and acromioclavicular osteoarthritis. He was treated with lidocaine patch and acetaminophen. Orthopedic was consulted but he wanted to leave prior to evaluation, and wanted to have outpatient evaluation. Although his glycemic control improved, his glucose was still above target, however he wanted to be discharged from the hospital and work on glycemic control in the outpatient setting. He had been off of his diabetes medications recently, he is quite familiar with home glucose checks and insulin which he was on in the past. He will be discharged on Lantus and metformin with follow-up with his primary provider and referral to Orthopedics for evaluation. Time Spent with Patient Time attestation: Total time spent providing and/or coordinating discharge services: 35 min Exam Narrative: Gen: Alert, NAD Abd: Soft, NT, ND Heart: RRR Lungs: CTAB Ext: Nol lower extremity edema DS: Data Data Completed and Pending Labs on day of discharge: Yamil
[2020-12-01 16:24] LABS: Glucose Point of Care 222 mg/dl (65-105)
[2020-12-03 08:06] LABS: Fractional Inspired Oxygen 21 %; HCO3 VBG 24.6 mEq/l (24.0-30.0); PCO2 VBG 35.2 mmHg (42.0-48.0)
[2020-12-03 08:32] LABS: PO2 VBG 26.6 mmHg (35.0-45.0)
[2020-12-03 08:33] LABS: pH VBG 7.462 (7.300-7.400)
== END 2020-12-01 15:15 | disposition home or self-care (01) ==
LOC: ANHED 11-30 00:35 → ANH3MEDSUR 11-30 00:48
PROVIDERS: Emergency Medicine; Admitting Provider Internal Medicine; Emergency Provider Emergency Medicine; Visit Provider Internal Medicine Nephrology
DX: N39.0 Urinary tract infection, site not specified (principal); E11.65 Type 2 diabetes mellitus with hyperglycemia; I10 Essential (primary) hypertension; E87.1 Hypo-osmolality and hyponatremia; B95.4 Other streptococcus as the cause of diseases classified elsewhere; M25.511 Pain in right shoulder; K74.60 Unspecified cirrhosis of liver; D72.829 Elevated white blood cell count, unspecified; R00.0 Tachycardia, unspecified; F17.210 Nicotine dependence, cigarettes, uncomplicated; F17.290 Nicotine dependence, other tobacco product, uncomplicated; F15.90 Other stimulant use, unspecified, uncomplicated; F12.90 Cannabis use, unspecified, uncomplicated; Z91.81 History of falling
CPT/HCPCS: 36415; 73030; 80048; 80053; 81001; 82010; 82803; 82948; 83036; 83605; 83690; 83735; 84100; 85025; 87086; 87088; 96361; 96365; 96374; 96375; 96376; 99285; A9270; G0378; G0379; J0131; J1815; J1956; J2270; J7030

== ENCOUNTER 2020-12-27 20:48 | Observation (INO) | payer OTHER, SELFPAY ==
--- NOTE | ~2020-12-27 | CT_ITS ---
EXAMINATION: CT brain wo con INDICATION: Head injury COMPARISON: 09/14/2020 TECHNIQUE: Standard unenhanced head CT. The dose-length product (DLP) was 605.33 mGy-cm. The mA was a djusted according to patient size. Iterative reconstruction technique was employed. FINDINGS: There is no intracranial hemorrhage, acute infarction, or abnormal mass lesion. The ventric les are normal. There is no abnormal mass effect or midline shift. The jimenez-white matter differentiat ion is normal. The basal cisterns are patent. The orbits are normal. There are old nasal bone fractur es. Intracranial calcified cerebral atherosclerosis is noted. The paranasal sinuses, mastoids and liz varium are normal. IMPRESSION: 1. No acute intracranial abnormality. Reviewed, dictated and finalized at location A.
--- NOTE | ~2020-12-27 | XR_ITS ---
EXAMINATION: XR shoulder RT min 2V INDICATION: Right shoulder pain TECHNIQUE: Four views of the right shoulder are submitted. COMPARISON: 12/01/2020 FINDINGS: There is mild cranial migration of the humeral head with respect to the glenoid which could reflect chronic rotator cuff tear. There is mild glenohumeral and acromioclavicular joint osteoarthr itis. No fracture is identified. Soft tissues are unremarkable. IMPRESSION: 1. No acute osseous abnormality. Reviewed, dictated and finalized at location A.
--- NOTE | ~2020-12-27 | XR_ITS ---
EXAMINATION: XR chest 1V INDICATION: Vomiting TECHNIQUE: AP view of the chest is obtained. COMPARISON: 04/17/2020 FINDINGS: The lungs are free of acute opacities. There is no pleural effusion or pneumothorax. The ca rdiomediastinal silhouette is normal. There is advanced osteoarthritis of the left glenohumeral joint . IMPRESSION: 1. No acute cardiopulmonary abnormality. Reviewed, dictated and finalized at location A.
[2020-12-27 20:48] VITALS: BP 106/78; PULSE 104; RESP 22; TEMP 36.3; O2SAT 99
--- NOTE | 2020-12-27 21:17 | ECG_ITS ---
Measurements Intervals [place] Rate: 101 P: 76 UT: 141 QRS: 30 QRSD: 91 T: 54 QT: 359 QTc: 466 Interpretive Statements SINUS TACHYCARDIA BORDERLINE ECG Electronically Signed On 12-28-2020 8:33:59 CDT by Rc Hanks D.O.
--- NOTE | 2020-12-27 21:45 | PC.NURSE ---
Pt to CT scan via stretcher.
[2020-12-27] MEDS: PANTOPRAZOLE SODIUM IV 40 MG VIAL 80 MG IV PUSH (22:00)
[2020-12-27] MEDS: SODIUM CHLORIDE 0.9% IV 1,000 ML 999 ML IV CONT ×2 (22:01→22:59)
[2020-12-27] MEDS: ONDANSETRON INJ 4 MG/2 ML VIAL IV PUSH (22:01)
[2020-12-27 22:06] VITALS: BP 94/66; PULSE 101; RESP 23; O2SAT 94
[2020-12-27 22:13] LABS: Basophils Absolute Auto 0.1 K/mm3 (0.0-0.1); Basophils Percent Auto 0.7 % (0.2-1.2); Eosinophils Absolute Auto 0.1 K/mm3 (0-0.3); Eosinophils Percent Auto 1.4 % (0-4.4); Hematocrit 27.7 % (42.0-52.0); Hemoglobin 9.6 g/dL (14.0-18.0); Immature Granulocyte Absolute 0.03 K/mm3 (0.00-0.031); Immature Granulocyte Percent A 0.4 % (0-0.5); Lymphocytes Percent Auto 16.1 % (18.3-44.2); Mean Corpuscular HGB Conc 34.7 g/dl (32-36); Mean Corpuscular Hemoglobin 30.3 pg (26-34); Mean Corpuscular Volume 87.4 fl (80-100); Mean Platelet Volume 10.8 fl (7.4-10.4); Monocytes Absolute Auto 0.8 K/mm3 (0.1-0.6); Monocytes Percent Auto 9.8 % (2.6-8.5); Neutrophils Absolute Auto 5.8 K/mm3 (1.3-6.7); Neutrophils Percent Auto 71.6 % (45.5-73.1); Platelet Count Result 161 k/mm3 (150-375); Red Blood Count 3.17 M/mm3 (4.6-6.20); Red Cell Distribution Width 12.4 % (11.5-14.5); White Blood Count 8.1 K/mm3 (4.5-10.0)
[2020-12-27 22:23] LABS: INR 1.2; Prothrombin Time 14.9 Seconds (11.1-14.7)
[2020-12-27 22:24] LABS: Alanine Aminotransferase 38 U/L (4-50); Alkaline Phosphatase 88 U/L (38-126); Anion Gap 7 mmol/L (8-16); Aspartate Amino Transferase 40 U/L (17-59); Bilirubin,Total 0.4 mg/dL (0.2-1.3); Blood Urea Nitrogen 22 mg/dL (9-20); Carbon Dioxide 27 mmol/L (22-30); Chloride 94 mmol/L (98-107); Estimated Glomerular Filt Rate > 60; Lipase 179 U/L (23-300); Partial Thromboplastin Time 28.3 SECONDS (22.3-36.8); Potassium 4.2 mmol/L (3.4-5.0); Sodium 128 mmol/L (137-145)
[2020-12-27 22:51] LABS: Glucose 673 mg/dL (65-110)
[2020-12-27 23:00] VITALS: BP 95/62; PULSE 99; RESP 21; O2SAT 98
[2020-12-27 23:12] LABS: Troponin I < 0.012 ng/mL (0.000-0.034)
[2020-12-27 23:19] VITALS: BP 96/60; PULSE 102; RESP 17; O2SAT 96
[2020-12-27 23:29] LABS: Alveolar/Arterial O2 Gradient 6.6 mmHg; Base Excess ABG -0.1 mEq/l (+/-2.0); Carboxyhemoglobin 0.3 % THb (0-2.0); Fractional Inspired Oxygen 21 %; HCO3 ABG 24.3 mEq/l (22.0-26.0); Methemoglobin ABG 0.2 %THb (0-1.5); Oxygen Content ABG 12.9 %vol (16.0-22.0); Oxygen Saturation ABG 97.6 % (95.0-100.0); Oxyhemoglobin 95.2 % THb (90.0-100.0); PCO2 ABG 38.1 mmHg (35.0-45.0); PO2 ABG 97.5 mmHg (80.0-100.0); PO2 FiO2 Ratio Arterial Blood 4.64 %; Reduced Hemoglobin 4.3 %THb (0-5.0); Total Hemoglobin 9.5 g/dL (12.0-18.0); pH ABG 7.422 (7.350-7.450)
[2020-12-27 23:31] LABS: Device ROOM AIR; Modified Allen's Test Pass; Site Drawn LEFT RADIAL
[2020-12-27] MEDS: OCTREOTIDE ACETATE 50 MCG/ML VIAL IV PUSH (23:31)
[2020-12-27] MEDS: INSULIN HUMAN REGULAR (*BKC) 100 UNITS/ML 10 UNITS IV PUSH (23:37)
[2020-12-27 23:46] VITALS: BP 109/67; PULSE 88; RESP 18; O2SAT 98
[2020-12-27 23:50] VITALS: BP 113/70; PULSE 71; RESP 16; TEMP 35.7; O2SAT 100
[2020-12-28] VITALS (20 sets, daily range): BP systolic 94–124; BP diastolic 44–75; PULSE 73–93; RESP 16–20; TEMP 35.7–36.9; O2SAT 96–100; BMI 21.5
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
--- NOTE | 2020-12-28 00:34 | PM.IMHP ---
H&P: HPI History of Present Illness Date/Time: 12/28/20 00:34 Chief Complaint: Hematemesis Narrative: This is a 55-year-old male with past medical history significant for alcohol abuse, methamphetamine abuse, type 2 diabetes mellitus, recent fall with trauma to the right shoulder patient has been taking ibuprofen at home due to pain, most of the history I have obtained from the mother who is at bedside in the emergency room patient is sleeping he moves spontaneously and purposefully however did not cooperate with history taking. Patient was at his house today he lives with his mom mom witnessed several episodes of hematemesis, large bright red blood emesis, patient has dry blood in his turcios and nostrils . He was brought to the emergency room via EMS Preliminary workup was significant for blood glucose of 673 a sodium of 128 a hemoglobin of 9.6. A blood gas showed a pH of 7.4 pCO2 of 30 P O2 97. According to his mother his noncompliant with his diabetes medication. Patient does had a recent admission to [facility] earlier in November due to uncontrolled blood sugar and urinary tract infection. Review of Systems Review of Systems: ROS unobtainable: Yes unobtainable due to mental status (Drowsy sleeping) PMFSH Past Medical History Medical History Diabetes Hypertension Surgical History Surgical History No pertinent past surgical history Family History Family History Mother Hypertension Family history of chronic obstructive pulmonary disease Family history of hypothyroidism Sibling Patient's sister is in good health Father Patient's father is Acute myocardial infarction Other Family history of cardiovascular disease Family history of malignant neoplasm Social History Social History Smoking packs per day: 0.5 Smoking cigarettes per day: 10.0 Years smoked: 35 Smoking pack-years: 17.50 Smoking status: Current every day smoker Tobacco type: cigarettes and e-cigarettes/vaping Second hand tobacco smoke exposure: Yes Additional smoking assessment comments: 04/01 ppd Alcohol intake: current Substance use: current Substance use type: marijuana and methamphetamine Last use: pt states its been a couple of months since I used methamphetamines Gender identity (if verbalized by the patient): Male Spiritual care concerns: No Meds Home Medications and Allergies Home Medications Medication Instructions Recorded Confirmed Type insulin glargine [Lantus U-100 25 unit SUBCUT HS 30 Days #7.5 ml 12/01/20 Rx Insulin] levofloxacin 750 mg PO DAILY #6 tablet 12/01/20 Rx lidocaine [Lidoderm] 1 patch TRANSDERMAL DAILY #15 ea 12/01/20 Rx metformin 500 mg PO BID #60 tablet 12/01/20 Rx Allergies Allergy/AdvReac Type Severity Reaction Status Date / Time trazodone Allergy Intermediate Unknown Verified 11/29/20 21:55 glimepiride Allergy Unknown Unknown Verified 11/29/20 21:55 lisinopril Allergy Unknown unknown Verified 11/29/20 21:55 Penicillins Allergy Unknown THROAT Verified 11/29/20 21:55 SWELLING Vital Signs Vital Signs - 24 hr 12/27/20 20:48 12/27/20 22:06 12/27/20 23:00 Temperature 97.4 F L Pulse Rate 104 H 101 H 99 Respiratory Rate 22 H 23 H 21 H Blood Pressure 106/78 94/66 L 95/62 L Pulse Oximetry 99 94 98 12/27/20 23:19 12/27/20 23:46 Temperature Pulse Rate 102 H 88 Respiratory Rate 17 18 Blood Pressure 96/60 L 109/67 Pulse Oximetry 96 98 Exam Narrative: Patient is laying in gurney Const: General: well developed and other (Sleeping, well-appearing.); No in distress Nutritional Appearance: thin Orientation/consciousness: Other orientation findings (Sleeping) HENMT: Head: normal to inspection, normocephalic and atraumati
[2020-12-28 00:59] LABS: Glucose Point of Care 229 mg/dl (65-105)
[2020-12-28] MEDS: MORPHINE SULFATE (*CRX) 4 MG/ML INJ IV PUSH (01:46)
[2020-12-28] MEDS: LORazepam INJ (*CRX) 2 MG/ML VIAL 1 MG IV PUSH (01:46)
--- NOTE | 2020-12-28 02:10 | ADMGEN ---
This patient, Richard Durham Jr., was admitted to IMU Room 206-01 on 12/28/20 at 0210. Patient/family oriented to hospital policies and general routines including ID bracelet, bed and alarms, visiting hours, pain management, procedures, bathroom and other care routines, personal items, smoking policy, room service/diet, and visiting hours. Information on how to activate the Rapid Response Team has been discussed. Patient/Family are encouraged to report perceived risks to care and to ask questions if they do not understand what they are told or what they should do.
[2020-12-28] MEDS: SODIUM CHLORIDE 0.9% IV 1,000 ML 125 ML IV CONT ×2 (02:39→11:11)
[2020-12-28] MEDS: LIDOCAINE 5% PATCH 1 PATCH TRANSDERM (11:11)
--- NOTE | 2020-12-28 12:41 | WPDGICN ---
Assessment and Plan Assessment and plan (1) Acute upper GI bleed: Code(s): K92.2 - Gastrointestinal hemorrhage, unspecified Status: Acute Assessment and Plan: started on iv protonix and octreotide could be ulcer/gastritis/esophagitis- h/o polysubstance abuse and using nsaid's but also could be variceal since he has cirrhosis will start also on iv antibiotics as prophylaxis and do EGD tomorrow ok to have liquid diet and npo after midnight (2) Acute blood loss anemia: Code(s): D62 - Acute posthemorrhagic anemia Status: Acute Assessment and Plan: continue to trend h/h and transfuse if hb<7 (3) Cirrhosis: Code(s): K74.60 - Unspecified cirrhosis of liver Status: Acute Assessment and Plan: h/o alcohol abuse will get abdominal ultrasound (4) Polysubstance abuse: Code(s): F19.10 - Other psychoactive substance abuse, uncomplicated Status: Acute Assessment and Plan: will check also for hepatitis monitor for withdrawal (5) Uncontrolled diabetes mellitus: Code(s): E11.65 - Type 2 diabetes mellitus with hyperglycemia Status: Acute Assessment and Plan: not taking insuling at home by primary team (6) Hyponatremia: Code(s): E87.1 - Hypo-osmolality and hyponatremia Status: Acute (7) Right shoulder pain: Code(s): M25.511 - Pain in right shoulder Status: Acute GI Consult Note Consult date/time: 12/28/20 12:41 Reason for consult: coffee ground emesis, cirrhosis HPI: Richard Castillo Marva William is a 55 year old male with history of alcohol abuse and cirrhosis (had paracentesis few years ago per records), methamphetamine abuse (he says that last time 4 days ago), type 2 diabetes mellitus but non-compliance who is poor historian. He had recent fall for which was taking ibuprofen at home due to pain. Mother mentioned to staff that he had several episodes of hematemesis with coffee ground. Patient is comfortable now and sleeping. Blood work showed high blood glucose of 673, sodium of 128 and hemoglobin of 9.6 (last time 13). Started on iv protonix and octreotide. He says that he is hardly drinking anymore. Last CT scan a/p showed cirrhosis with portal HTN Review of Systems Constitutional: Constitutional: Denies chills Eyes: Eyes: Reports no additional eye complaints ENT: Reports Normal hearing present Cardiovascular: Cardiovascular: Denies chest pain Respiratory: Respiratory: Denies dyspnea Gastrointestinal: Gastrointestinal: Reports nausea, Reports vomiting and Reports hematemesis Genitourinary: Genitourinary: Denies dysuria Musculoskeletal: Musculoskeletal: Reports arthralgias Integumentary/Breasts: Skin/Breast: Denies dry skin Neurologic: Reports system reviewed and no additional complaints, except as documented Psychiatric: Psychiatric: Reports anxiety PMFSH Past Medical History Medical History Diabetes Hypertension Surgical History Surgical History No pertinent past surgical history Family History Family History Mother Family history of cardiovascular disease Family history of hypothyroidism Family history of chronic obstructive pulmonary disease Hypertension Sibling Patient's sister is in good health Stomach cancer Family history of malignant neoplasm Father Family history of cardiovascular disease Acute myocardial infarction Patient's father is Social History Social History Smoking packs per day: 0.5 Smoking cigarettes per day: 10.0 Years smoked: 35 Smoking pack-years: 17.50 Smoking status: Current every day smoker Tobacco type: cigarettes and e-cigarettes/vaping Second hand tobacco smoke exposure: Yes Additional smoking assessment comments: 04/01
--- NOTE | 2020-12-28 14:01 | PM.IMPN ---
Progress Note: A&P Assessment and Plan (1) Acute blood loss anemia: Code(s): D62 - Acute posthemorrhagic anemia Status: Acute Assessment and Plan: Continue on Protonix and octreotide drip Monitor H&H. Transfuse PRBC if indicated. GI consult recommendations appreciated. EGD is planned for tomorrow. He has been started on liquid diet today but will remain NPO overnight for endoscopy in the a.m.. Levofloxacin S started by gastroenterology service empirically for SBP. Hepatitis panel has been ordered. (2) Polysubstance abuse: Code(s): F19.10 - Other psychoactive substance abuse, uncomplicated Status: Acute Assessment and Plan: Follow-up in the outpatient setting Nicotine patch as needed Follow for any signs of withdrawal. She has (3) Uncontrolled diabetes mellitus: Code(s): E11.65 - Type 2 diabetes mellitus with hyperglycemia Status: Acute Assessment and Plan: Patient is noncompliant with management and is not taking insulin at home. Continue Lantus. Hold metformin. Insulin sliding scale as needed Accu-Cheks AC and HS (4) Pseudohyponatremia: Code(s): R79.89 - Other specified abnormal findings of blood chemistry Status: Acute Assessment and Plan: Secondary to elevated blood sugar. Continue to monitor (5) Right shoulder pain: Code(s): M25.511 - Pain in right shoulder Status: Acute Assessment and Plan: Follow-up in outpatient setting Avoid NSAIDs. Tylenol as needed. Subjective Date/time seen: 12/28/20 14:01 He was sleepy but easily arousable. He was not very cooperative during my evaluation. He denied have any further episode of vomiting. He has not moved his bowel since he is admitted to the hospital. He is complaining of some abdominal discomfort. He denied have any nausea. He denied have any chest pain fever and chills. Review of Systems Review of Systems: A comprehensive review of systems has been reviewed with the patient and most of the symptoms are negative except the one's mentioned above in HPI. 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 Extremities no edema Objective Data Vital Signs Vital Signs: Vital Signs - 24 hr 12/27/20 20:48 12/27/20 22:06 12/27/20 23:00 Temperature 36.3 C L Pulse Rate 104 H 101 H 99 Respiratory Rate 22 H 23 H 21 H Blood Pressure 106/78 94/66 L 95/62 L Pulse Oximetry 99 94 98 12/27/20 23:19 12/27/20 23:46 12/28/20 00:52 Temperature Pulse Rate 102 H 88 93 Respiratory Rate 17 18 17 Blood Pressure 96/60 L 109/67 94/69 L Pulse Oximetry 96 98 98 12/28/20 02:12 12/28/20 02:20 12/28/20 02:22 Temperature 36.9 C Pulse Rate 92 85 85 Respiratory Rate 18 20 20 Blood Pressure 99/70 L 99/61 L Pulse Oximetry 98 99 99 12/28/20 04:00 12/28/20 05:52 12/28/20 08:51 Temperature 36.6 C 36.5 C Pulse Rate 87 84 78 Respiratory Rate 16 20 Blood Pressure 107/67 97/44 L Pulse Oximetry 97 99 12/28/20 13:07 Temperature 36.4 C L Pulse Rate 78 Respiratory Rate 18 Blood Pressure 112/74 Pulse Oximetry 100 Intake/Output Intake/Output: Intake & Output 12/25/20 12/26/20 12/27/20 12/28/20 23:59 23:59 23:59 23:59 Intake Total 1999 1500 Output Total 640 Balance 1999 860 Meds/Results Medications: Active Medications Generic Name Dose Route Start Last Admin Trade Name Freq PRN Reason Stop Dose Admin Octreotide Acetate 500 mcg/ 100 mls @ 5 mls/hr 12/27/20 22:40 12/27/20 23:31 Dextrose IV CONT 25 mcg/hr .Q20H ROMIE 5 mls/hr Administration 25 MCG/HR Sodium Chloride 1,000 mls @ 75 mls/hr 12/28/20 00:30 12/28/20 11:32 Normal Saline Iv IV CONT 75 mls/hr .[id number] ROMIE Infusion Pantoprazole Sodium 80 mg/ 500 mls
[2020-12-28] MEDS: levoFLOXacin 250 MG/D5W 50 ML 250 MG/50 ML BAG 50 MG IVPB (15:27)
[2020-12-28 17:26] LABS: Hemoglobin 7.9 g/dL (14.0-18.0)
[2020-12-28] MEDS: SODIUM CHLORIDE 0.9% IV 1,000 ML 75 ML IV CONT (20:29)
[2020-12-28 21:22] LABS: Glucose Point of Care 464 mg/dl (65-105)
[2020-12-28] MEDS: INSULIN ASPART (*BKC) 100 UNITS/ML 8 UNITS SUB-Q (21:53)
[2020-12-28] MEDS: MORPHINE SULFATE (*CRX) 2 MG/ML INJ IV PUSH (21:53)
[2020-12-28] MEDS: INSULIN GLARGINE (*BKC) 100 UNITS/ML 25 UNITS SUB-Q (21:54)
[2020-12-28] MEDS: SODIUM CHLORIDE 0.9% IV 250 ML 30 ML IV CONT (21:54)
[2020-12-28] MEDS: TUBING, BLOOD PLUM PUMP TUBING 1 EACH XX (21:54)
[2020-12-29] VITALS: PULSE 76
[2020-12-29 00:03] LABS: Glucose Point of Care 420 mg/dl (65-105)
[2020-12-29 02:00] VITALS: PULSE 84
[2020-12-29] MEDS: MORPHINE SULFATE (*CRX) 2 MG/ML INJ IV PUSH (02:06)
[2020-12-29 02:15] LABS: Glucose Point of Care 284 mg/dl (65-105)
[2020-12-29] MEDS: HYDROmorphone HCL INJ (*CRX) 1 MG/ML SYR IV PUSH (02:49)
[2020-12-29 04:00] VITALS: BP 107/66; PULSE 75; PULSE 76; RESP 16; TEMP 36.1; O2SAT 96
[2020-12-29 05:50] LABS: Basophils Percent Auto 0.6 % (0.2-1.2); Eosinophils Absolute Auto 0.2 K/mm3 (0-0.3); Eosinophils Percent Auto 2.9 % (0-4.4); Hematocrit 25.5 % (42.0-52.0); Hemoglobin 8.7 g/dL (14.0-18.0); Immature Granulocyte Absolute 0.01 K/mm3 (0.00-0.031); Immature Granulocyte Percent A 0.2 % (0-0.5); Lymphocytes Absolute Auto 1.06 K/mm3 (0.9-3.2); Lymphocytes Percent Auto 20.4 % (18.3-44.2); Mean Corpuscular HGB Conc 34.1 g/dl (32-36); Mean Corpuscular Hemoglobin 29.4 pg (26-34); Mean Corpuscular Volume 86.1 fl (80-100); Mean Platelet Volume 11.3 fl (7.4-10.4); Monocytes Absolute Auto 0.5 K/mm3 (0.1-0.6); Monocytes Percent Auto 10.4 % (2.6-8.5); Neutrophils Absolute Auto 3.4 K/mm3 (1.3-6.7); Neutrophils Percent Auto 65.5 % (45.5-73.1); Platelet Count Result 107 k/mm3 (150-375); Red Blood Count 2.96 M/mm3 (4.6-6.20); Red Cell Distribution Width 13.5 % (11.5-14.5); White Blood Count 5.2 K/mm3 (4.5-10.0)
[2020-12-29 06:00] LABS: Anion Gap 4 mmol/L (8-16); Blood Urea Nitrogen 21 mg/dL (9-20); Calcium 7.6 mg/dL (8.4-10.2); Carbon Dioxide 26 mmol/L (22-30); Chloride 107 mmol/L (98-107); Estimated CRCL calculation 109 ml/min; Estimated Glomerular Filt Rate > 60; Glucose 222 mg/dL (65-110); Potassium 3.7 mmol/L (3.4-5.0); Sodium 137 mmol/L (137-145)
[2020-12-29 06:01] LABS: Hemoglobin A1C 12.3 % (<5.7)
--- NOTE | 2020-12-29 06:30 | PC.NURSE ---
Pt decided to leave against medical advice. This RN walked him to the front doors. Alerted element winding machine tender, power house control room operator, and hospitalist.
[2020-12-29 07:08] LABS: Hepatitis B Surface Antigen Negative (Negative)
[2020-12-29 07:13] LABS: HAV RESULT Negative (Negative); Hepatitis B Core IgM Result Negative (Negative)
[2020-12-29 07:39] LABS: Hepatitis C Virus Antibody Reactive (Negative)
--- NOTE | 2020-12-29 14:30 | PM.EVENT ---
Event Note Event Note Event Note: He signed out himself against medical advise at around 6:15AM. He was explained all the complications and health-related issues if he leaves the hospital against medical advice. He understood the risk instill want to leave the hospital. I did not see him today on 12/29.
[2021-01-01 15:21] LABS: Hepatitis C RNA, Quant PCR <15 IU/mL
--- NOTE | 2021-01-18 07:32 | PM.EVENT ---
Event Note Event Note Event Note: I was called to be informed about the patient leaving against medical advice. This is a late entry note. 12/29/20
== END 2020-12-29 06:26 | disposition left against medical advice (07) ==
LOC: ANHED 21:23 → ANHIMU 12-28 01:10
PROVIDERS: Internal Medicine Critical Care Medicine; Internal Medicine Gastroenterology; Admitting Provider Internal Medicine; Emergency Provider Emergency Medicine; Visit Provider Internal Medicine
DX: D62 Acute posthemorrhagic anemia (principal); K92.2 Gastrointestinal hemorrhage, unspecified; K74.60 Unspecified cirrhosis of liver; F19.10 Other psychoactive substance abuse, uncomplicated; E11.65 Type 2 diabetes mellitus with hyperglycemia; R79.89 Other specified abnormal findings of blood chemistry; E87.1 Hypo-osmolality and hyponatremia; M25.511 Pain in right shoulder; I10 Essential (primary) hypertension; F17.210 Nicotine dependence, cigarettes, uncomplicated; F17.290 Nicotine dependence, other tobacco product, uncomplicated; W19.XXXA Unspecified fall, initial encounter; Z91.14 Patient's other noncompliance with medication regimen; Z79.4 Long term (current) use of insulin; Z79.84 Long term (current) use of oral hypoglycemic drugs
CPT/HCPCS: 36415; 36430; 36600; 70450; 71045; 73030; 80048; 80053; 80074; 82375; 82805; 82948; 83036; 83050; 83690; 84484; 85014; 85018; 85025; 85610; 85730; 86850; 86900; 86901; 86920; 87522; 93005; 96361; 96365; 96366; 96374; 96375; 96376; 99285; A9270; C9113; G0378; G0379; J1170; J1815; J1956; J2060; J2270; J2354; J2405; J7030; J7050; J7060; P9016

== ENCOUNTER 2021-08-08 14:21 | Inpatient (IN) | payer OTHER, SELFPAY ==
[2021-08-08] VITALS (13 sets, daily range): BP systolic 115–144; BP diastolic 63–121; PULSE 101–116; RESP 13–22; TEMP 36.3–36.7; O2SAT 95–100; BMI 21.4
--- NOTE | ~2021-08-08 | CT_ITS ---
EXAMINATION: CT abdomen pelvis w con DATE: 08/08/2021 17:14 INDICATION: Right lower quadrant abdominal pain. Nausea and vomiting. TECHNIQUE: Computed tomography (CT) of the abdomen and pelvis was performed with 100 mL Omnipaque 300 intravenous contrast. Automated exposure control and iterative reconstruction technique were employe d. The dose-length product was 480.05 mGy-cm. COMPARISON: CT abdomen and pelvis 09/14/2020 FINDINGS: The visualized portions of the lung bases demonstrate mild atelectasis. No pleural effusion . The heart size is normal. No pericardial effusion. The liver demonstrates a nodular surface contour , consistent with cirrhosis. The gallbladder is normal. There is mild splenomegaly. The pancreas, adr enal glands, and kidneys are normal. There is a right inguinal hernia containing small bowel. Small b owel is dilated proximal to the hernia, consistent with obstruction. There is diverticulosis of the c olon without evidence of diverticulitis. The appendix is not visualized. Paraesophageal varices are n oted. There is a periumbilical portacaval shunt. There is mild periportal lymphadenopathy, likely deangelo ctive. There are no pathologically enlarged lymph nodes. There is severe lumbar spondylosis and moder ate thoracic spondylosis is mild chronic height loss of multiple vertebral bodies. IMPRESSION: 1. Small bowel obstruction secondary to a right inguinal hernia. 2. Cirrhosis of the liver with portal venous hypertension. Reviewed, dictated and finalized at location A.
[2021-08-08 14:53] LABS: Basophils Percent Auto 0.4 % (0.2-1.2); Eosinophils Percent Auto 0.1 % (0-4.4); Hematocrit 47.1 % (42.0-52.0); Hemoglobin 15.1 g/dL (14.0-18.0); Immature Granulocyte Absolute 0.02 K/mm3 (0.00-0.031); Immature Granulocyte Percent A 0.2 % (0-0.5); Lymphocytes Absolute Auto 0.94 K/mm3 (0.9-3.2); Lymphocytes Percent Auto 9.5 % (18.3-44.2); Mean Corpuscular HGB Conc 32.1 g/dl (32-36); Mean Corpuscular Hemoglobin 25.4 pg (26-34); Mean Corpuscular Volume 79.2 fl (80-100); Mean Platelet Volume 10.2 fl (7.4-10.4); Monocytes Absolute Auto 0.8 K/mm3 (0.1-0.6); Monocytes Percent Auto 7.7 % (2.6-8.5); Neutrophils Absolute Auto 8.1 K/mm3 (1.3-6.7); Neutrophils Percent Auto 82.1 % (45.5-73.1); Platelet Count Result 224 k/mm3 (150-375); Red Blood Count 5.95 M/mm3 (4.6-6.20); Red Cell Distribution Width 15.5 % (11.5-14.5); White Blood Count 9.9 K/mm3 (4.5-10.0)
[2021-08-08 15:02] LABS: Alanine Aminotransferase 40 U/L (6-50); Alkaline Phosphatase 222 U/L (38-126); Anion Gap 11 mmol/L (8-16); Aspartate Amino Transferase 47 U/L (17-59); Bilirubin,Total 1.4 mg/dL (0.2-1.3); Blood Urea Nitrogen 10 mg/dL (9-20); Calcium 10.1 mg/dL (8.4-10.2); Carbon Dioxide 27 mmol/L (22-30); Chloride 96 mmol/L (98-107); Estimated Glomerular Filt Rate > 60; Glucose 418 mg/dL (65-110); Lipase 67 U/L (23-300); Potassium 4.3 mmol/L (3.4-5.0); Sodium 134 mmol/L (137-145)
[2021-08-08 16:06] LABS: Glucose Point of Care 451 mg/dl (65-105)
--- NOTE | 2021-08-08 16:08 | PC.NURSE ---
Pt mother at desk. reports patient feels as if he might have a seizure. VS re-evaluated, FSBS checked and scrap charger called for possible bed placement. Pt laying on bench with family bedside.
--- NOTE | 2021-08-08 16:35 | ED.ABDPAIN ---
HPI - Abdominal Pain General Chief Complaint: Abdominal Pain Stated Complaint: abdominal pain Time Seen by Provider: 08/08/21 16:32 Source: RN notes reviewed History of Present Illness HPI narrative: Patient presents emergency room from home for abdominal pain. Patient states has had pain for the past 2 days pain is located in the bilateral lower abdomen and does not radiate he states he has a history of bilateral hernias that are not able to be repaired secondary to his history of cirrhosis he states that the hernia on the right side has been large and has been unable to reduce it for the past 2 days he states he has been associate with nausea and vomiting. He denies any fevers or chills chest pain shortness of breath diarrhea or any other symptoms of concern Related Data Home Medications Medication Instructions Recorded Confirmed risperidone 2 mg PO HS 12/28/20 12/28/20 Allergies Allergy/AdvReac Type Severity Reaction Status Date / Time Penicillins Allergy Severe Anaphylaxis Verified 08/08/21 17:01 glimepiride Allergy Unknown Unknown Verified 08/08/21 17:01 trazodone AdvReac Intermediate Nausea Verified 08/08/21 17:01 lisinopril AdvReac Unknown Cough Verified 08/08/21 17:01 Review of Systems Review of Systems: Gen.: Denies fevers or chills ENT: Denies congestion Respiratory: Denies shortness of breath or cough CV: Denies chest pain or palpitations GI: See HPI denies burning, urgency, frequency or hematuria Musculoskeletal: Denies back pain or muscle pain Neuro: Denies numbness, tingling, weakness or focal weakness Skin: Denies rash Except as documented, all other systems reviewed and negative [facility] Past Medical History Medical History Cirrhosis Diabetes Hypertension Polysubstance abuse Uncontrolled diabetes mellitus Surgical History Surgical History No pertinent past surgical history Family History Family History Mother Family history of cardiovascular disease Family history of hypothyroidism Family history of chronic obstructive pulmonary disease Hypertension Sibling Patient's sister is in good health Stomach cancer Family history of malignant neoplasm Father Family history of cardiovascular disease Acute myocardial infarction Patient's father is Social History Social History Smoking packs per day: 0.5 Smoking cigarettes per day: 10.0 Years smoked: 35 Smoking pack-years: 17.50 Smoking status: Current every day smoker Tobacco type: cigarettes and e-cigarettes/vaping Second hand tobacco smoke exposure: Yes Additional smoking assessment comments: 04/01 ppd Alcohol intake: unknown Substance use: current Substance use type: marijuana and methamphetamine Last use: 12/27/20 Gender identity (if verbalized by the patient): Male Spiritual care concerns: No Exam Narrative: APPEARANCE: No acute distress, nontoxic, resting in bed HEENT: Normocephalic, atraumatic, OMM RESPIRATORY: No respiratory distress, clear to auscultation bilaterally with no rhonchi wheezing or rales CARDIOVASCULAR: RRR s murmur ABDOMINAL: Soft nondistended tender palpation diffusely throughout the abdomen with increased tenderness in right lower quadrant left lower quadrant no rebound or guarding, right inguinal hernia that is firm and unable to be reduced at this time MUSCULOSKELETAl: Moves all extremities. No clubbing, cyanosis or edema. NEURO: Awake and alert. Following commands, speech normal, no focal deficits SKIN:: Warm, dry. Normal Color PSYCHIATRIC: Normal affect/mood Course Course Emergency Course: Attempted to reduce patient's right inguinal hernia unable to reduce Called discussed with Dr. Joel who came to the emergency department. At this time to evaluate the pat
[2021-08-08] MEDS: ONDANSETRON INJ 4 MG/2 ML VIAL IV PUSH (16:50)
[2021-08-08] MEDS: MORPHINE SULFATE (*CRX) 4 MG/ML INJ IV PUSH (16:50)
[2021-08-08] MEDS: SODIUM CHLORIDE 0.9% IV 1,000 ML 999 ML IV CONT ×2 (16:50→17:22)
--- NOTE | 2021-08-08 17:03 | PC.NURSE ---
Pt to CT scan via stretcher at this time.
[2021-08-08 17:08] LABS: Lactic Acid Reflex 2.5 mmol/L (0.7-2.0)
--- NOTE | 2021-08-08 17:37 | PC.NURSE ---
Dr Rogers at bedside at this time to attempt hernia repair. Given 25 Ketamine and 100 Propofol for sedation. Pt on tele monitor w/ VSS. Dr Joel attempting to reduce hernia at this time.
--- NOTE | 2021-08-08 17:40 | PC.NURSE ---
Per Dr Moser at bedside, gave a total of 150 Propofol and 25 Ketamine IVP for sedation and reduction. Dr Joel states successful at reducing hernia. Pt assisted w/ bag mask ventilations.
--- NOTE | 2021-08-08 17:50 | WPDANESEPPF ---
Anes - Initial Pre Proc Eval Procedure: Reduction of Right inguinal hernia Date/Time: 08/08/21 17:50 Surgeon: Wisam Pre Op Diagnosis: Incarcerated Right inguinal hernia with SBO Pre Op Diagnosis: abdominal pain Patient Data Age: 55 Gender: M Height: Weight: Last Vital Signs Temp 36.3 C L 08/08/21 16:07 Pulse 109 H 08/08/21 17:24 Resp 21 H 08/08/21 17:24 BP 132/93 H 08/08/21 17:24 Pulse Ox 98 08/08/21 17:24 Allergies Allergy/AdvReac Type Severity Reaction Status Date / Time Penicillins Allergy Severe Anaphylaxis Verified 08/08/21 17:01 glimepiride Allergy Unknown Unknown Verified 08/08/21 17:01 trazodone AdvReac Intermediate Nausea Verified 08/08/21 17:01 lisinopril AdvReac Unknown Cough Verified 08/08/21 17:01 Home Medications Medication Instructions Recorded Confirmed Type insulin glargine [Lantus U-100 25 unit SUBCUT HS 30 Days #7.5 ml 12/01/20 12/28/20 Rx Insulin] lidocaine [Lidoderm] 1 patch TRANSDERMAL DAILY #15 ea 12/01/20 12/28/20 Rx metformin 500 mg PO BID #60 tablet 12/01/20 12/28/20 Rx risperidone 2 mg PO HS 12/28/20 12/28/20 History Laboratory Tests 08/08/21 08/08/21 08/08/21 14:44 14:44 16:03 WBC 9.9 K/mm3 K/mm3 (4.5-10.0) RBC 5.95 M/mm3 M/mm3 (4.6-6.20) Hgb 15.1 g/dL D g/dL (14.0-18.0) Hct 47.1 % % (42.0-52.0) MCV 79.2 fl L fl (80-100) MCH 25.4 pg L pg (26-34) MCHC 32.1 g/dl g/dl (32-36) RDW 15.5 % H % (11.5-14.5) Plt Count 224 k/mm3 D k/mm3 (150-375) MPV 10.2 fl fl (7.4-10.4) Immature Gran % (Auto) 0.2 % % (0-0.5) Neut % (Auto) 82.1 % H % (45.5-73.1) Lymph % (Auto) 9.5 % L % (18.3-44.2) [place] % (Auto) 7.7 % % (2.6-8.5) Eos % (Auto) 0.1 % % (0-4.4) Baso % (Auto) 0.4 % % (0.2-1.2) Lymph # (Auto) 0.94 K/mm3 K/mm3 (0.9-3.2) [place] # (Auto) 0.8 K/mm3 H K/mm3 (0.1-0.6) Eos # (Auto) 0.0 K/mm3 K/mm3 (0-0.3) Baso # (Auto) 0.0 K/mm3 K/mm3 (0.0-0.1) Abs Immat Gran (auto) 0.02 K/mm3 K/mm3 (0.00-0.031) Absolute Neuts (auto) 8.1 K/mm3 H K/mm3 (1.3-6.7) Absolute Nucleated RBC 0.0 K/mm3 K/mm3 (0.0-0.012) Nucleated RBC % 0.0 % % (0.0-0.2) Sodium 134 mmol/L L mmol/L (137-145) Potassium 4.3 mmol/L mmol/L (3.4-5.0) Chloride 96 mmol/L L mmol/L (98-107) Carbon Dioxide 27 mmol/L mmol/L (22-30) Anion Gap 11 mmol/L mmol/L (8-16) BUN 10 mg/dL D mg/dL (9-20) Creatinine 0.60 mg/dL L mg/dL (0.7-1.3) Estim Creat Clear Calc Not Reportable Estimated GFR > 60 (59 - ) Glucose 418 mg/dL H mg/dL (65-110) POC Capillary Glucose 451 mg/dl H mg/dl (65-105) Lactic Acid Calcium 10.1 mg/dL mg/dL (8.4-10.2) Total Bilirubin 1.4 mg/dL H mg/dL (0.2-1.3) AST 47 U/L U/L (17-59) ALT 40 U/L U/L (6-50) Alkaline Phosphatase 222 U/L H U/L (38-126) Total Protein 9.0 g/dL H g/dL (6.3-8.2) Albumin 5.0 g/dL g/dL (3.5-5.1) Lipase 67 U/L U/L (23-300) 08/08/21 16:47 WBC RBC Hgb Hct MCV MCH MCHC RDW Plt Count MPV Immature Gran % (Auto) Neut % (Auto) Lymph % (Auto) [place] % (Auto) Eos % (Auto) Baso % (Auto) Lymph # (Auto) [place] # (Auto) Eos # (Auto) Baso # (Auto) Abs Immat Gran (auto) Absolute Neuts (auto) Absolute Nucleated RBC Nucleated RBC % Sodium Potassium Chloride Carbon Dioxide Anion Gap BUN Creatinine Estim Creat Clear Calc Estimated GFR Glucose POC Capillary Glucose Lactic Acid
--- NOTE | 2021-08-08 17:57 | PM.CNGS ---
Assessment and Plan Assessment and plan (1) Incarcerated right inguinal hernia: Code(s): K40.30 - Unilateral inguinal hernia, with obstruction, without gangrene, not specified as recurrent Status: Acute Assessment and Plan: Patient a very poor candidate for emergency surgery. Department of Anesthesia administered significant sedation and I was able to reduce the hernia in the emergency room completely. Patient will be admitted and I will follow along with you. He should have his hernia repaired in the near future to avoid recurrence of this. Possibly during this admission if blood sugar can be controlled and he can be otherwise optimized. This could be done under sedation with local anesthetic. (2) Small bowel obstruction: Code(s): K56.609 - Unspecified intestinal obstruction, unspecified as to partial versus complete obstruction Status: Acute Assessment and Plan: Due to incarcerated right inguinal hernia-resolved after hernia reduced. (3) Acute hyperglycemia: Code(s): R73.9 - Hyperglycemia, unspecified Status: Acute Assessment and Plan: Blood sugars in the 400s. (4) Uncontrolled diabetes mellitus: Code(s): E11.65 - Type 2 diabetes mellitus with hyperglycemia Status: Acute Assessment and Plan: Non compliant. (5) Cirrhosis: Code(s): K74.60 - Unspecified cirrhosis of liver Status: Chronic Assessment and Plan: Related to alcohol. (6) Portal hypertension with esophageal varices: Code(s): K76.6 - Portal hypertension; I85.00 - Esophageal varices without bleeding Status: Chronic Assessment and Plan: Esophageal another varices. (7) Polysubstance abuse: Code(s): F19.10 - Other psychoactive substance abuse, uncomplicated Status: Chronic Assessment and Plan: History methamphetamine use. History of Present Illness Consult details Consult date: 08/08/21 Reason for consult: hernia (Incarcerated right inguinal hernia) Requesting physician: Richard Brown DO Narrative: Patient is a 55-year-old man with alcoholic cirrhosis and portal hypertension. He is also an insulin-dependent diabetic. His a history of methamphetamine use as well. He was admitted to the hospital last November and December with out of control insulin-dependent diabetes and hyperglycemia. He came to the emergency room today with a 2 day history of right inguinal pain and was found to have an incarcerated right inguinal hernia. His blood sugars were in the 400s. He had had nausea and vomiting. CT scan showed evidence of an incarcerated right inguinal hernia with small-bowel obstruction due to the incarceration. I was called by the emergency room physician and saw the patient in consultation. Review of Systems Review of Systems: All systems reviewed & are unremarkable except as noted in HPI and below Constitutional: Constitutional: Denies chills and Denies fever(s) Cardiovascular: Cardiovascular: Denies chest pain, Denies diaphoresis, Denies dyspnea and Denies paroxysmal nocturnal dyspnea Respiratory: Respiratory: Denies chest congestion, Denies cough and Denies dyspnea Gastrointestinal: Gastrointestinal: Reports as per HPI, Reports abdominal pain, Reports GI cramping and Reports vomiting Integumentary/Breasts: Skin/Breast: Denies lesions and Denies rash PMFSH Past Medical History Medical History Cirrhosis Diabetes Hypertension Polysubstance abuse Uncontrolled diabetes mellitus Surgical History Surgical History No pertinent past surgical history Family History Family History Mother Family history of cardiovascular disease Family history of hypothyroidism Family history of chronic obstructive pulmonary disease Hypertension Sibling Patient's sister is in good
[2021-08-08 18:35] LABS: INR 1.3; Prothrombin Time 15.5 Seconds (11.1-14.7)
[2021-08-08 18:36] LABS: Partial Thromboplastin Time 29.8 SECONDS (22.3-36.8)
[2021-08-08 19:03] LABS: Glucose Point of Care 343 mg/dl (65-105)
[2021-08-08 19:09] LABS: Appearance Urine Clear (Clear); Bilirubin Urine Negative (Negative); Color Urine Yellow (Yellow); Glucose Urine UA 3+ mg/dL (Negative); Ketones Urine 2+ mg/dL (Negative); Leukocyte Esterase Ur Negative LEU/UL (Negative); Nitrate Urine Negative (Negative); Protein Urine Trace mg/dL (Negative); Specific Grav Ur 1.015 (1.001-1.035); Urobilinogen Urine 0.2 mg/dL (<2.0)
[2021-08-08 19:17] LABS: Add Urine Microscopic? YES; Blood Urine Trace-Intact (Negative)
[2021-08-08 19:22] LABS: RBC Urine 0-2 /hpf (0-2); WBC Urine 0-3 /hpf
[2021-08-08 19:54] LABS: Reflex Lactic Acid Yes or No Add Lactic
--- NOTE | 2021-08-08 21:22 | ADMGEN ---
This patient, Richard Durham Jr., was admitted to Medical Room 343-01. Patient/family oriented to hospital policies and general routines including ID bracelet, bed and alarms, visiting hours, pain management, procedures, bathroom and other care routines, personal items, smoking policy, room service/diet, and visiting hours. Information on how to activate the Rapid Response Team has been discussed. Patient/Family are encouraged to report perceived risks to care and to ask questions if they do not understand what they are told or what they should do.
[2021-08-08 22:30] LABS: Glucose Point of Care 306 mg/dl (65-105)
--- NOTE | 2021-08-08 22:46 | PC.NURSE ---
BS 306 BASIC DIABETIC TEACHING REGARDING PARAMETERS AND INSULIN PROTOCOLS WAS GIVEN. PATIENT STATES THAT ANY ATTEMPTS TO ADMINISTER ANY MEDS VIA INJECTION WOULD BE REFUSED. THIS REFUSAL INCLUDE BLOOD DRAWS, WHICH HE HAS IN FACT HAS REFUSED THIS EVENING. HOSPITALIST JAMES HAS BEEN NOTIFIED.
--- NOTE | 2021-08-08 22:54 | PM.IMHP ---
H&P: HPI History of Present Illness Date/Time: Greater than 30 minutes spent reviewing chart, evaluating, treating, and counseling patient. Anticipate greater than 48 hours admission, will admit as inpatient. 08/08/21 22:54 55 yo M PMHx of polysubstance abuse (recently smoked meth yesterday), DM suppose to be on insulin (noncompliant), cirrhosis, h/o Hep C (treated), HTN. Known h/o b/l inguinal hernias. Presents with 1 day h/o RLQ abdominal pain with associated n/v. Patient reports he noticed his R hernia was protruding out and tried to reduce it, but unable to. Patient denies hematemesis. Report normal BM. Denies blood in stool or melena. Patient states he has chronic pain, but patient's currently medications do not help so he uses meth to help with the pain. States he last smoked meth yesterday, does not use IV meth anymore. Patient denies fevers/chills, SOB, CP, palpitations, d/c, dysuria, hematuria. In ED, patient's vitals stable. Labs remarkable HB 15 with low MCV, normal INR, glucose 451. CT A/P shows SBO 2/2 R inguinal hernia and cirrhosis of the liver with portal HTN. GS consulted and evaluated patient in ED. Patient is too high risk to take to OR, so patient was sedated at bedside and hernia was reduced. Chief Complaint: Abdominal pain, n/v Review of Systems Review of Systems: 10 point ROS reviewed, negative unless otherwise specified per HPI [facility] Past Medical History Medical History (Updated 08/08/21 @ 23:32 by Corona Cotton DO) Cirrhosis Depression Diabetes Hypertension Microcytic anemia Polysubstance abuse Uncontrolled diabetes mellitus Surgical History Surgical History No pertinent past surgical history Family History Family History Mother Family history of cardiovascular disease Family history of hypothyroidism Family history of chronic obstructive pulmonary disease Hypertension Sibling Patient's sister is in good health Stomach cancer Family history of malignant neoplasm Father Family history of cardiovascular disease Acute myocardial infarction Patient's father is Social History Social History Smoking packs per day: 0.5 Smoking cigarettes per day: 10.0 Years smoked: 35 Smoking pack-years: 17.50 Smoking status: Current every day smoker Tobacco type: cigarettes and e-cigarettes/vaping Second hand tobacco smoke exposure: Yes Additional smoking assessment comments: 04/01 ppd Alcohol intake: former Drinks per week: 2 Substance use: current Substance use type: methamphetamine Last use: 12/27/20 Gender identity (if verbalized by the patient): Male Spiritual care concerns: No Meds Home Medications and Allergies Home Medications Medication Instructions Recorded Confirmed Type aripiprazole 5 mg PO DAILY 08/08/21 08/08/21 History carvedilol 3.125 mg PO BID 08/08/21 08/08/21 History escitalopram oxalate 10 mg PO DAILY 08/08/21 08/08/21 History gabapentin 300 mg PO TID 08/08/21 08/08/21 History ropinirole 0.5 mg PO TID 08/08/21 08/08/21 History Allergies Allergy/AdvReac Type Severity Reaction Status Date / Time Penicillins Allergy Severe Anaphylaxis Verified 08/08/21 21:17 glimepiride Allergy Unknown Unknown Verified 08/08/21 21:17 trazodone AdvReac Intermediate Nausea Verified 08/08/21 21:17 lisinopril AdvReac Unknown Cough Verified 08/08/21 21:17 Vital Signs Vital Signs - 24 hr 08/08/21 14:28 08/08/21 16:07 08/08/21 17:24 Temperature 97.6 F 97.3 F L Pulse Rate 112 H 116 H 109 H Pulse Rate [Monitor] Respiratory Rate 16 22 H 21 H Blood Pressure 144/121 H 129/98 H 132/93 H Blood Pressure [Left Arm] Pulse Oximetry 100 100 98 08/08/21 17:35 08/08/21 17:37 08/08/21 17:42 Temperature 98.0 F 98.0 F 98.0 F Pulse Rate Pulse Rate [Monitor] 107 H 106 H 105 H Res
[2021-08-08] MEDS: SODIUM CHLORIDE 0.9% IV 1,000 ML 100 ML IV CONT (23:45)
[2021-08-08] MEDS: NICOTINE (*PBKC) 21 MG PATCH 1 PATCH TRANSDERM (23:45)
[2021-08-09 05:25] VITALS: BP 106/66; PULSE 89; RESP 16; TEMP 36.1; O2SAT 99
--- NOTE | 2021-08-09 06:44 | PC.NURSE ---
AUTO DISMANTLER HERE TO DRAW MORNING LABS. PATIENT REFUSING AT THIS TIME STATING TO TRY BACK LATER HE WANTS TO EAT. PATIENT AWARE THAT HIS DIET ORDER IS NPO. PHYSICIAN MADE AWARE.
[2021-08-09 08:00] VITALS: O2SAT 99
[2021-08-09 08:12] LABS: Glucose Point of Care 267 mg/dl (65-105)
--- NOTE | 2021-08-09 09:48 | PC.NURSE ---
Patient has repeatedly refused any and all interventions including FSBS, medications, and labs. Additionally, he has announced that he would be leaving sometime today no matter what. Nursing convinced him to stay pending a visit from .
--- NOTE | 2021-08-09 11:22 | PM.PNGS ---
Progress Note: A&P Assessment and Plan (1) Incarcerated right inguinal hernia: Code(s): K40.30 - Unilateral inguinal hernia, with obstruction, without gangrene, not specified as recurrent Status: Acute Assessment and Plan: Hernia was reduced yesterday and has stayed reduced through the night. He has no signs of bowel obstruction. I spoke with Dr. Moseley and patient adamantly plans to leave today either with discharge or against medical advice. Both Dr. Moseley and I have strongly advocated that he stay and have his hernia repaired. He does not agree to do this. I can see him in the office but his diabetes will be uncontrolled and I am not sure that we can go ahead with surgery on an elective basis although we will try. (2) Small bowel obstruction: Code(s): K56.609 - Unspecified intestinal obstruction, unspecified as to partial versus complete obstruction Status: Acute Assessment and Plan: Resolved with hernia reduction yesterday. (3) Portal hypertension with esophageal varices: Code(s): K76.6 - Portal hypertension; I85.00 - Esophageal varices without bleeding Status: Chronic Assessment and Plan: Increases surgical risks (4) Acute hyperglycemia: Code(s): R73.9 - Hyperglycemia, unspecified Status: Acute Assessment and Plan: Improving but patient noncompliant with diabetes and expect this to return promptly (5) Polysubstance abuse: Code(s): F19.10 - Other psychoactive substance abuse, uncomplicated Status: Chronic Assessment and Plan: Increases risks (6) Cirrhosis: Qualifiers: Hepatic cirrhosis type: alcoholic cirrhosis Ascites presence: without ascites Qualified Code(s): K70.30 - Alcoholic cirrhosis of liver without ascites Code(s): K74.60 - Unspecified cirrhosis of liver Status: Chronic Assessment and Plan: Increases surgical risk. (7) Uncontrolled diabetes mellitus: Qualifiers: Diabetes mellitus type: other specified (including [place]) Glycemic state: with hyperglycemia Qualified Code(s): E13.65 - Other specified diabetes mellitus with hyperglycemia Code(s): E11.65 - Type 2 diabetes mellitus with hyperglycemia Status: Acute Assessment and Plan: As above. Subjective Subjective Date/Time Seen: 08/09/21 11:22 Patient reports: other (Tired) Review of Systems Review of Systems: ROS unobtainable: Yes other (Sleepy and uncooperative to complete review of systems) Exam GI: Inspection: non-distended GI Palp: Yes Soft to palpation, No Tenderness to palpation present (GI) and No Palpable mass present Auscultation: normal bowel sounds : Male General Exam: Yes hernia (Right inguinal remains reducible) Objective Data Vital Signs Vital Signs: Vital Signs - 24 hr 08/08/21 14:28 08/08/21 16:07 08/08/21 17:24 Temperature 36.4 C 36.3 C L Pulse Rate 112 H 116 H 109 H Pulse Rate [Monitor] Respiratory Rate 16 22 H 21 H Blood Pressure 144/121 H 129/98 H 132/93 H Blood Pressure [Left Arm] Pulse Oximetry 100 100 98 08/08/21 17:35 08/08/21 17:37 08/08/21 17:42 Temperature 36.7 C 36.7 C 36.7 C Pulse Rate Pulse Rate [Monitor] 107 H 106 H 105 H Respiratory Rate 20 13 21 H Blood Pressure Blood Pressure [Left Arm] 127/79 119/77 127/79 Pulse Oximetry 96 99 96 08/08/21 17:57 08/08/21 18:01 08/08/21 18:28 Temperature 36.7 C 36.6 C Pulse Rate 101 H Pulse Rate [Monitor] 107 H 113 H Respiratory Rate 18 14 18 Blood Pressure 129/83 Blood Pressure [Left Arm] 139/79 134/85 Pulse Oximetry 100 95 97 08/08/21 18:58 08/08/21 19:30 08/08/21 22:18 Temperature 36.6 C Pulse Rate 110 H 106 H 104 H Pulse Rate [Monitor] Respiratory Rate 20 20 16 Blood Pressure 136/89 137/78 115/63 Blood Pressure [Left Arm] Pulse Oximetry 100 100 98 08/08/21 23:48 08/09/21 05:25 Temperature 36.1 C L Pulse Rate 109 H 89 Pulse Rate [Monitor] Res
[2021-08-09] MEDS: INSULIN ASPART (*BKC) 100 UNITS/ML SUB-Q (11:25)
[2021-08-09 11:29] LABS: Glucose Point of Care 324 mg/dl (65-105)
--- NOTE | 2021-08-09 11:29 | PM.DS ---
DS: Admitting Diagnosis Discharge Date patient was seen and examined 08/09/2021 Admitting Diagnosis incarcerated right inguinal hernia DS: Discharge Diagnosis Discharge Diagnosis (1) Incarcerated right inguinal hernia: Code(s): K40.30 - Unilateral inguinal hernia, with obstruction, without gangrene, not specified as recurrent Status: Acute Assessment and Plan: GS following, patient to be evaluated for possible surgery is medically stable. Given 1 L IVF bolus, on VF NS 100 cc/hr Patient was pain free and refused to stay for hernia repair on Wednesday he wished to follow up as an outpatient instead discussed with Dr. Joel who recommended that the patient remain hospitalized however because the patient was adamant regarding going home he agreed to see the patient in the office if he would call on Wednesday for an appointment patient was instructed to return to the emergency room immediately if his pain recurred the patient indicated that he understood the risk of going home including and more extensive emergency surgery should his problem recur and he understood the necessity of follow-up (2) Polysubstance abuse: Code(s): F19.10 - Other psychoactive substance abuse, uncomplicated Status: Chronic Assessment and Plan: Patient reports he uses meth because of pain and has no other options due to drug use. Counseled on importance of cessation to be able to get proper care from pain management (3) Cirrhosis: Qualifiers: Ascites presence: without ascites Hepatic cirrhosis type: alcoholic cirrhosis Qualified Code(s): K70.30 - Alcoholic cirrhosis of liver without ascites Code(s): K74.60 - Unspecified cirrhosis of liver Status: Chronic Assessment and Plan: Does not appear acutely decompensated. Does not appear to have large volume ascites. Continue to monitor PT-INR (4) Uncontrolled diabetes mellitus: Qualifiers: Diabetes mellitus type: other specified (including [place]) Glycemic state: with hyperglycemia Qualified Code(s): E13.65 - Other specified diabetes mellitus with hyperglycemia Code(s): E11.65 - Type 2 diabetes mellitus with hyperglycemia Status: Acute Assessment and Plan: Patient does not take any medications or insulin at home and is refusing meds here. Counseled on importance of glycemic control and consequence of uncontrolled DM. adequately controlled and improving during hospitalization reviewed discharge medications in detail with patient and he agreed to comply also ordered glucometer and supplies so that he can monitor his sugar (5) Microcytic anemia: Code(s): D50.9 - Iron deficiency anemia, unspecified Status: Acute Assessment and Plan: may be anemia of chronic disease he did not allow follow-up lab (6) Depression: Code(s): F32.A - Depression, unspecified Status: Acute Assessment and Plan: see discharge medications for mood disorder and probable bipolar disorder (7) Hypertension: Code(s): I10 - Essential (primary) hypertension Status: Acute Assessment and Plan: see discharge medications DS: Summary Hospital Course Reason for hospitalization: groin pain Hospital Course: admitted with incarcerated right inguinal hernia that was reduced under sedation by Dr. Joel see below for details. his hernia and the associated pain did not recur during hospitalization Status at Discharge Functional status at discharge: independent ambulation Overall status at discharge: patient is back to baseline Time Spent with Patient Time attestation: Total time spent providing and/or coordinating discharge services: Time spent: Greater than 30 minutes Exam Narrative: HEENT: PERRL, sclerae nonicteric, pharyngeal mucosa pink and intact NECK: No JVD CHEST: Clear to auscultation. Normal effort. HEART: NL S1/S2, regular, no murmur ABDOMEN: BS+, soft, nontender, no mass, n
[2021-08-09] MEDS: KETOROLAC 30 MG/ML VIAL (*BKC) IV PUSH (11:35)
[2021-08-09] MEDS: NICOTINE (*PBKC) 21 MG PATCH 1 PATCH TRANSDERM (11:35)
== END 2021-08-09 12:48 | disposition home or self-care (01) | DRG 254 ==
LOC: ANHED 18:30 → ANH3MED 20:11
PROVIDERS: Emergency Medicine; Admitting Provider Family Medicine; Emergency Provider Emergency Medicine; PCP Family Medicine; Visit Provider Internal Medicine
DX: K40.30 Unilateral inguinal hernia, with obstruction, without gangrene, not specified as recurrent (principal); K70.30 Alcoholic cirrhosis of liver without ascites; D50.9 Iron deficiency anemia, unspecified; E13.65 Other specified diabetes mellitus with hyperglycemia; F17.290 Nicotine dependence, other tobacco product, uncomplicated; F17.210 Nicotine dependence, cigarettes, uncomplicated; F19.10 Other psychoactive substance abuse, uncomplicated; F12.90 Cannabis use, unspecified, uncomplicated; F10.988 Alcohol use, unspecified with other alcohol-induced disorder; F15.10 Other stimulant abuse, uncomplicated; F32.A Depression, unspecified; I10 Essential (primary) hypertension; I85.10 Secondary esophageal varices without bleeding; K76.6 Portal hypertension; Z86.19 Personal history of other infectious and parasitic diseases; Z88.0 Allergy status to penicillin; Z88.8 Allergy status to other drugs, medicaments and biological substances; Z91.14 Patient's other noncompliance with medication regimen; Z91.19 Patient's noncompliance with other medical treatment and regimen
CPT/HCPCS: 36415; 74177; 80053; 81001; 82948; 83605; 83690; 85025; 85610; 85730; 86850; 86900; 86901; 96361; 96374; 96375; 99285; A9270; J1815; J1885; J2270; J2405; J7030; Q9967

== ENCOUNTER 2021-08-21 01:40 | Day surgery (SDC) | payer OTHER, SELFPAY ==
[2021-08-15 15:33] VITALS: BMI 23.5
--- NOTE | 2021-08-15 15:40 | PC.NURSE ---
08/15/21 preoperative interview obtained from mother,talked with dr perez and dr calvin regarding medical history ,seizure activity,uncontrolled blood suger,will proceed with surgery.
--- NOTE | 2021-08-15 15:42 | SUR.PREOP ---
Report to the Outpatient Waiting Room, entrance under the green pavilion located off [facility], at time _1100 on date 08/21/21 . OR Time: _1300 . - You and your visitor will be asked a series of questions to screen for COVID 19 for your protection. - Only one visitor is allowed at this time. - The patient visitor is requested to leave or wait in car when not with patient. - A mask is required within the hospital. Patients may have clear liquids (water, carbonated beverages, clear teas, apple juice) until 3 hours prior to surgery with a maximum of 20 ounces. - No food from midnight until time of surgery - Infants may have breast milk until 4 hours before surgery, infant formula 6 hours prior to surgery. - Children will be allowed to drink immediately following surgery. If applicable, please bring a bottle or sippy cup to assist with drinking. Juice, water, soda, and popsicles are readily available. For infants on formula, please bring formula the day of surgery. Pacifiers are allowed. Take the following medications with a SIP of water the morning of surgery: ___gabapentin,escitalopram,carvidolol Medications to discontinue per physician n/a Date to take last dose_n/a Please no make-up, nail syriac, hairspray, perfume, deodorant, or body powder the day of surgery. No jewelry (including any body piercings) or valuables the day of surgery, leave them at home. Please take a shower or bath the night before, or the morning of, surgery with an antibacterial soap. Wear comfortable, loose fitting clothing. Children are encouraged to wear pajamas. HIBICLENS SHOWER AM OF SURGERY - Jewelry must be removed prior to entering the operating room. Rings and piercings that are not removed may be cut off. - The hospital will not accept responsibility for valuables. - Please leave all valuables, including medications, at home the day of surgery. If you are going home after surgery, a licensed emergency detail driver must drive you home. - NO public transportation without another adult. - We recommend that an adult stay with you for 24 hours following discharge. - We also recommend that you do not drive, make important decision, drink alcoholic beverages, or take any drugs that were not prescribed by your health care provider for at least 24 hours after your discharge time. For Pediatric surgeries, we recommend two adults accompany the child home (only one inside the building at this time). Follow any additional instructions given to you from your surgeon. If you or anyone in your household have experienced Covid symptoms in the past week, please notify your surgeon or the nurse liaison at the phone number below for possible testing. Telephone instructions given to _mother keshawn and asked if any additional questions and then verbalized understanding. Patient advised to call surgeon office or pre surgery nurse liaison [phone] if any additional questions.
[2021-08-21] VITALS (8 sets, daily range): BP systolic 78–138; BP diastolic 49–91; PULSE 57–98; RESP 14–16; TEMP 36.1; O2SAT 97–100
[2021-08-21] MEDS: ACETAMINOPHEN 500 MG TABLET 1000 MG PO (11:45)
[2021-08-21 11:57] LABS: Glucose Point of Care 413 mg/dl (65-105)
[2021-08-21] MEDS: INSULIN HUMAN REGULAR (*BKC) 100 UNITS/ML 20 UNITS IV PUSH (12:03)
[2021-08-21] MEDS: KETOROLAC 15 MG/ML VIAL (*BKC) IV PUSH (12:07)
[2021-08-21] MEDS: LACTATED RINGERS 1,000 ML 30 ML IV CONT ×3 (12:07→15:41)
--- NOTE | 2021-08-21 12:15 | WPDANESEPPF ---
Anes - Initial Pre Proc Eval Procedure: Operation Date: 08/21/21 13:00 Proposed Procedures p Repair Incarcerated Right Inguinal Hernia - Aris Joel MD Date/Time: 08/21/21 12:15 Surgeon: Aris Joel MD Pre Op Diagnosis: Incarcerated Right Ing Hernia Patient Data Age: 55 Gender: M Height: 1.7 m Weight: 64.3 kg Last Vital Signs Temp 36.1 C L 08/21/21 11:18 Pulse 98 08/21/21 11:18 Resp 16 08/21/21 11:18 BP 113/71 08/21/21 11:18 Pulse Ox 100 08/21/21 11:18 O2 Del Method Room Air 08/21/21 11:18 Allergies Allergy/AdvReac Type Severity Reaction Status Date / Time Penicillins Allergy Severe Anaphylaxis Verified 08/21/21 11:29 glimepiride Allergy Mild Itching Verified 08/21/21 11:29 trazodone AdvReac Intermediate Nausea Verified 08/21/21 11:29 lisinopril AdvReac Mild Cough Verified 08/21/21 11:29 Home Medications Medication Instructions Recorded Confirmed Type acetaminophen 500 mg tablet 1,000 mg PO Q6H PRN Mild to 08/09/21 08/21/21 Rx moderate pain #60 tabs aripiprazole 5 mg tablet 5 mg PO DAILY #14 tabs 08/09/21 08/21/21 Rx blood sugar diagnostic (Blood #50 ea 08/09/21 Rx Glucose Test) blood-glucose meter #1 ea 08/09/21 Rx carvedilol 3.125 mg tablet 3.125 mg PO BID #28 tabs 08/09/21 08/21/21 Rx escitalopram oxalate 10 mg tablet 10 mg PO DAILY #14 tabs 08/09/21 08/21/21 Rx gabapentin 300 mg capsule 300 mg PO TID #42 caps 08/09/21 08/21/21 Rx insulin glargine 100 unit/mL (3 15 unit (0.15 mL) subcut QAM #15 mL 08/09/21 08/21/21 Rx mL) subcutaneous pen (Lantus Solostar U-100 Insulin) lancets 28 gauge (Lancets,Thin) #100 ea 08/09/21 Rx pen needle, diabetic 31 gauge x #50 ea 08/09/21 Rx 3/16 sitagliptin 100 mg tablet 100 mg PO DAILY #30 tabs 08/09/21 08/21/21 Rx Laboratory Tests 08/21/21 11:52 POC Capillary Glucose 413 mg/dl H mg/dl (65-105) Patient hx anesthesia problems: none Family hx anesthesia problems: none Results Review: All pre-operative results and documents have been reviewed as part of the pre-operative evaluation. FORMERLY [facility], [facility] Past Medical History Medical History Cirrhosis Depression Diabetes Hypertension Microcytic anemia Polysubstance abuse Uncontrolled diabetes mellitus Surgical History Surgical History No pertinent past surgical history Family History Family History Mother Family history of cardiovascular disease Family history of hypothyroidism Family history of chronic obstructive pulmonary disease Hypertension Sibling Patient's sister is in good health Stomach cancer Family history of malignant neoplasm Father Family history of cardiovascular disease Acute myocardial infarction Patient's father is Social History Social History Smoking packs per day: 0.5 Smoking cigarettes per day: 10.0 Years smoked: 35 Smoking pack-years: 17.50 Smoking status: Current every day smoker Tobacco type: cigarettes Second hand tobacco smoke exposure: Yes Additional smoking assessment comments: 1/2 ppd cigarettes x 35 years Alcohol intake: former Drinks per week: 2 Substance use: current Substance use type: marijuana Other substance usage details: occasional smoking marijuana Last use: 12/27/20 Living arrangements: with family Gender identity (if verbalized by the patient): Male Spiritual care concerns: No Anes - Eval Final PreProcedure Day of Procedure 08/21/21 12:15 Patient weight: normal Heart: regular rate and rhythm Lungs: clear to auscultation Airway: Mallampati scale class II and special considerations poor dentition Last oral intake: >/= 8 hours ASA classification: IV Emergent: no Anesthetic plan: proceed Anesthesia type and monitoring: general
[2021-08-21 12:21] LABS: Glucose Point of Care 323 mg/dl (65-105)
[2021-08-21] MEDS: INSULIN HUMAN REGULAR (*BKC) 100 UNITS/ML 10 UNITS IV PUSH (12:26)
[2021-08-21 13:04] LABS: Glucose Point of Care 88 mg/dl (65-105)
[2021-08-21] MEDS: DEXTROSE 50% 25 GM/50 ML SYRINGE IV PUSH (13:08)
[2021-08-21 13:18] LABS: Glucose Point of Care 118 mg/dl (65-105)
--- NOTE | 2021-08-21 13:24 | WPDHPUPDATE1 ---
History and Physical Update Update Date/Time: 08/21/21 13:24 Please see my consultation of 08/08/2021 for the history and physical examination. Patient has had no episodes of incarceration since that time. History and Physical has been reviewed, including an updated exam of the patient. There are NO changes in the patient's condition. Risks, benefits, and alternatives have been discussed and questions answered. Patient agrees to proceed with procedure.
--- NOTE | 2021-08-21 13:47 | W.PM.PROC2 ---
Procedure Note - Detailed Date of Procedure 08/21/21 Pre-op Diagnosis Incarcerated Right Ing Hernia Post-op Diagnosis Same Procedure Performed Repair of right inguinal hernia Surgeon Aris Joel MD [employer] Specialist Supervisor Tsering QUINONES Anesthesia General (G IV S) and Local (1% lidocaine with epinephrine) Indications Patient is a 55-year-old man who presented to [place] emergency room on August 08 with an incarcerated right inguinal hernia and small-bowel obstruction. He has multiple medical problems including COPD, alcoholic cirrhosis with portal hypertension, and polysubstance abuse. He is diabetic and does not follow any recommendations for his diabetes, knowingly running blood sugars in the 3 and 400s as a baseline. With the help of the Department of Anesthesia, I was able to reduce his right inguinal hernia and relieve the small-bowel obstruction. He was admitted overnight with plans to stabilize his blood sugars and general medical condition then proceed with repair of the incarcerated hernia. The patient left against our advice on 08/09/2021. Although he was discharged, he was going to leave A if not discharged. Although the patient would be in poor condition particularly with hyperglycemia to proceed with outpatient inguinal hernia repair, it is felt that this situation would still be better than returning to the emergency room with incarceration and small-bowel obstruction as well as his typical medical problems. For this reason he is taken to surgery today for right inguinal hernia repair. Findings Large, long-standing, indirect right inguinal hernia. Multiple dilated spermatic cord veins consistent with portal hypertension Description of Procedure Patient was taken to surgery and placed in a supine position. Anesthesia was introduced. The right groin and genitalia were prepped and draped. The proposed incision was marked on the skin. Local anesthetic was infiltrated into the skin and the deeper subcutaneous tissues. Incision was made and dissection was carried down through the subcutaneous. Crossing veins were cauterized and divided. Venous structures were much larger than usual due to the portal hypertension. We dissected down to the external oblique aponeurosis. The aponeurosis was exposed as was the external ring. Additional local was infiltrated deep to the aponeurosis in the area of the inguinal canal and spermatic cord. I then opened the aponeurosis laterally and extended this medially through the external ring. Care was taken to avoid injury to the ilioinguinal nerve which was left attached to the cord throughout the surgery. We dissected the leaves the aponeurosis free from the underlying inguinal canal contents. I then mobilized the cord medially on a [place] drain. I dissected back to the internal ring further mobilizing the spermatic cord. I dissected anteromedially in the cord and found an indirect hernia sac. The sac was dissected free from the cord structures and then dissected back to a high dissection. This dissection was difficult as the hernia sac was densely adhesed to the spermatic cord structures. There were also many large veins in the spermatic cord and care had to be taken to avoid bleeding. Eventually the hernia sac was dissected completely and then dissected back to the internal ring. Properitoneal fat was able to be seen at the neck of the hernia. I twisted the hernia sac spiraling it. I then used a 3-0 Vicryl suture and ligated the neck of the hernia sac just above the properitoneal fat. I then amputated the hernia sac just above the ligature. The stump of the hernia sac retracted into the retroperitoneum. The hernia sac itself was passed off as a specimen. I then repaired the hernia in Bassini fashion. I used 0 Ethibond suture and started at the pubic tubercle. I sutured pubic tubercle and then the reflection of the inguinal ligament in interrupted fashion to the transversalis fascia. This continued unti
[2021-08-21] MEDS: ceFAZolin 2 GM/D5W 50 ML 2 GM/50 ML BAG IVPB (13:51)
[2021-08-21 13:52] LABS: Glucose Point of Care 55 mg/dl (65-105)
[2021-08-21] MEDS: LIDO 1%/EPINEPHRINE/PF 1:200,000 30 ML VIAL XX (15:15)
[2021-08-21 15:31] LABS: Glucose Point of Care 131 mg/dl (65-105)
[2021-08-21 15:31] LABS: Glucose Point of Care 145 mg/dl (65-105)
[2021-08-21 16:39] LABS: Glucose Point of Care 126 mg/dl (65-105)
== END 2021-08-21 17:12 | disposition home or self-care (01) ==
PROVIDERS: PCP Family Medicine; Visit Provider Surgery
PROC: (CPT 49507; principal; 2021-08-21 13:00)
DX: K40.30 Unilateral inguinal hernia, with obstruction, without gangrene, not specified as recurrent (principal); J44.9 Chronic obstructive pulmonary disease, unspecified; K70.30 Alcoholic cirrhosis of liver without ascites; K76.6 Portal hypertension; I10 Essential (primary) hypertension; E11.65 Type 2 diabetes mellitus with hyperglycemia; D50.9 Iron deficiency anemia, unspecified; F32.9 Major depressive disorder, single episode, unspecified; Z79.4 Long term (current) use of insulin; Z79.84 Long term (current) use of oral hypoglycemic drugs; F17.210 Nicotine dependence, cigarettes, uncomplicated; F12.90 Cannabis use, unspecified, uncomplicated; F17.290 Nicotine dependence, other tobacco product, uncomplicated; F15.90 Other stimulant use, unspecified, uncomplicated
CPT/HCPCS: 49507; 82948; 88302; A9270; J0690; J1815; J1885; J2250; J2405; J2704; J3010; J7120

== ENCOUNTER 2022-01-08 12:36 | Emergency (ER) | payer OTHER, SELFPAY ==
[2022-01-08 12:42] VITALS: BP 124/93; PULSE 71; RESP 18; TEMP 36.6; O2SAT 95
[2022-01-08 12:42] LABS: Glucose Point of Care 500 mg/dl (65-105)
[2022-01-08 12:44] VITALS: BP 123/92; O2SAT 97
[2022-01-08 12:46] VITALS: BP 124/93; O2SAT 97
--- NOTE | 2022-01-08 12:50 | ED.GENADULT ---
HPI - General Adult General Chief complaint: Recheck/Abnormal Lab/Rx <DILAN Ram Last Filed: 01/08/22 19:45> Stated complaint: high blood sugar <DILAN Ram Last Filed: 01/08/22 19:45> Time Seen by Provider: 01/08/22 12:42 <DILAN Ram Last Filed: 01/08/22 19:45> Source: patient and family <DILAN Ram Last Filed: 01/08/22 19:45> Mode of arrival: ambulatory <DILAN Ram Last Filed: 01/08/22 19:45> Limitations: clinical condition <DILAN Ram Last Filed: 01/08/22 19:45> History of Present Illness HPI narrative: Patient is a 56 y/o male who presents to the ED with c/o elevated blood sugars. Patient's mother at bedside assisted in providing information. Patient had his annual appointment with his primary care doctor this morning. His blood sugar was noted to be elevated at the appointment and he was referred to the ED for further evaluation. Blood sugar upon arrival 500. Patient has a history of type 1 diabetes, reportedly diagnosed later in life. He has not been taking his insulin for the last few months. Mother does report he did take 30 units of insulin this morning, but she is unsure which insulin he used. Mother reports patient has not slept for the last few days as he is a methamphetamine user. Patient has no complaints currently. He is somewhat somnolent. <DILAN Ram Last Filed: 01/08/22 19:45> Related Data Allergies/adverse reactions: Allergies Allergy/AdvReac Type Severity Reaction Status Date / Time Penicillins Allergy Severe Anaphylaxis Verified 10/13/21 15:11 glimepiride Allergy Mild Itching Verified 10/13/21 15:11 trazodone AdvReac Intermediate Nausea Verified 10/13/21 15:11 lisinopril AdvReac Mild Cough Verified 10/13/21 15:11 <DILAN Ram Last Filed: 01/08/22 19:45> Review of Systems Review of Systems: CONSTITUTIONAL: Denies fever, chills, or sweats. CARDIOVASCULAR: Denies chest pain. RESPIRATORY: Denies dyspnea. GASTROINTESTINAL: Denies abdominal pain, nausea, vomiting, or diarrhea. MUSCULOSKELETAL: Denies pain. <Leigh El PA-C - Last Filed: 01/08/22 19:45> All systems reviewed & are unremarkable except as noted in HPI and below <Leigh El PA-C - Last Filed: 01/08/22 19:45> [facility] Past Medical History Medical History: Medical History Cirrhosis Depression Diabetes Hypertension Microcytic anemia Polysubstance abuse Uncontrolled diabetes mellitus <Leigh El PA-C - Last Filed: 01/08/22 19:45> Surgical History Surgical History: Surgical History H/O right inguinal hernia repair 08/21/21 Repair of right inguinal hernia <Leigh El PA-C - Last Filed: 01/08/22 19:45> Family History Family History: Family History Mother Family history of cardiovascular disease Family history of hypothyroidism Family history of chronic obstructive pulmonary disease Hypertension Sibling Patient's sister is in good health Stomach cancer Family history of malignant neoplasm Father Family history of cardiovascular disease Acute myocardial infarction Patient's father is <Leigh El PA-C - Last Filed: 01/08/22 19:45> Social History Social History: Social History (Updated 01/08/22 @ 14:31 by Leigh El PA-C) Smoking packs per day: 0.5 Smoking cigarettes per day: 10.0 Years smoked: 35 Smoking pack-years: 17.50 Smoking status: Current every day smoker Tobacco type: cigarettes Second hand tobacco smoke exposure: Yes Additional smoking assessment comments: 1/2 ppd cigarettes x 35 years Alcohol intake: former Drinks per week: 2 Substance
[2022-01-08 13:29] LABS: Add Urine Microscopic? YES; Appearance Urine Clear (Clear); Bilirubin Urine Negative (Negative); Blood Urine Negative (Negative); Color Urine Straw (Yellow); Glucose Urine UA 3+ mg/dL (Negative); Ketones Urine Negative (Negative); Leukocyte Esterase Ur Negative LEU/UL (Negative); Mucus Urine Rare /lpf; Nitrate Urine Negative (Negative); Protein Urine Negative (Negative); RBC Urine 0-2 /hpf (0-2); Urobilinogen Urine Negative mg/dL (<2.0); WBC Urine 0-3 /hpf
[2022-01-08 13:29] LABS: Eosinophils Absolute Auto 0.1 K/mm3 (0-0.3); Eosinophils Percent Auto 2.3 % (0-4.4); Hematocrit 41.6 % (42.0-52.0); Hemoglobin 13.9 g/dL (14.0-18.0); Lymphocytes Absolute Auto 0.94 K/mm3 (0.9-3.2); Lymphocytes Percent Auto 24.3 % (18.3-44.2); Mean Corpuscular HGB Conc 33.4 g/dl (32-36); Mean Corpuscular Hemoglobin 28.2 pg (26-34); Mean Corpuscular Volume 84.4 fl (80-100); Mean Platelet Volume 10.6 fl (7.4-10.4); Monocytes Absolute Auto 0.4 K/mm3 (0.1-0.6); Monocytes Percent Auto 10.1 % (2.6-8.5); Neutrophils Absolute Auto 2.4 K/mm3 (1.3-6.7); Neutrophils Percent Auto 62.3 % (45.5-73.1); Platelet Count Result 129 k/mm3 (150-375); Red Blood Count 4.93 M/mm3 (4.6-6.20); Red Cell Distribution Width 14.1 % (11.5-14.5); White Blood Count 3.9 K/mm3 (4.5-10.0)
[2022-01-08 13:30] VITALS: O2SAT 89
[2022-01-08 13:32] VITALS: BP 122/77; O2SAT 97
[2022-01-08 13:38] LABS: Hemoglobin A1C > 14.0 % (<5.7)
[2022-01-08 13:40] LABS: Alanine Aminotransferase 49 U/L (6-50); Albumin Level 4.4 g/dL (3.5-5.1); Alkaline Phosphatase 132 U/L (38-126); Anion Gap 7 mmol/L (8-16); Aspartate Amino Transferase 47 U/L (17-59); Bilirubin,Total 0.6 mg/dL (0.2-1.3); Blood Urea Nitrogen 11 mg/dL (9-20); Calcium 9.7 mg/dL (8.4-10.2); Carbon Dioxide 28 mmol/L (22-30); Chloride 98 mmol/L (98-107); Estimated Glomerular Filt Rate > 60; Glucose 517 mg/dL (65-110); Potassium 4.4 mmol/L (3.4-5.0); Sodium 133 mmol/L (137-145)
[2022-01-08 13:41] LABS: Beta-Hydroxybutyrate/Acetoacetate 0.11 mmol/L (0.02-0.27)
[2022-01-08 13:46] VITALS: BP 103/78; O2SAT 97
[2022-01-08] MEDS: SODIUM CHLORIDE 0.9% IV 1,000 ML 999 ML IV CONT ×2 (13:47→15:21)
[2022-01-08 14:29] LABS: Amphetamine Screen Urine Positive (Negative); Barbiturate Screen Urine Negative (Negative); Benzodiazepines Screen Urine Negative (Negative); Cannabinoid Screen Urine Positive (Negative); Cocaine Screen Urine Negative (Negative); Methadone Screen Urine Negative (Negative); Opiate Screen Urine Negative (Negative); Phencyclidine Screen Urine Negative (Negative)
[2022-01-08 17:13] LABS: Glucose Point of Care 261 mg/dl (65-105)
== END 2022-01-08 19:14 | disposition home or self-care (01) ==
PROVIDERS: Physician Assistant; Emergency Provider Emergency Medicine; PCP Family Medicine
DX: E10.65 Type 1 diabetes mellitus with hyperglycemia (principal); F12.10 Cannabis abuse, uncomplicated; F15.10 Other stimulant abuse, uncomplicated; T38.3X6A Underdosing of insulin and oral hypoglycemic [antidiabetic] drugs, initial encounter; Z91.128 Patient's intentional underdosing of medication regimen for other reason; K74.60 Unspecified cirrhosis of liver; I10 Essential (primary) hypertension; D50.9 Iron deficiency anemia, unspecified; F17.210 Nicotine dependence, cigarettes, uncomplicated
CPT/HCPCS: 36415; 80053; 80307; 81001; 82010; 82948; 83036; 85025; 96360; 96361; 99283; J7030